=== PATIENT | male | born 1990 | race Hispanic/Latino ===

== ENCOUNTER 2021-04-11 17:21 | Emergency (ER) | payer SELFPAY ==
--- OUTSIDE RECORDS SUMMARY | 2021-04-11 17:31 | XMS REPORT | Continuity of Care Document ---
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 Request 2 mL hours prior to next bag Iohexol 2020-0 No 100 mL, Memoria 01-08 Route: l 23:12: IVP, Drug [place] 00 Form: SOLN, Dosing Weight 131.2, kg, ONCALL, STAT, Start date: 01/09/20 18:12:00 CDT, Duration: 1 doses or times, Dose = 2.2ml/kg, Max dose = 100ml -- "To be infused by Radiology Staff ONLY" Iohexol 2020-0 No 100 mL, Memoria 01-08 Route: l 23:12: IVP, Drug [place] 00 Form: SOLN, Dosing Weight 131.2, kg, ONCALL, STAT, Start date: 01/09/20 18:12:00 CDT, Duration: 1 doses or times, Dose = 2.2ml/kg, Max dose = 100ml -- "To be infused by Radiology Staff ONLY" Iohexol 2020-0 No 100 mL, Memoria 01-08 Route: l 21:19: IVP, Drug [place] 00 Form: SOLN, Dosing Weight 131.2, kg, ONCALL, STAT, Start date: 01/09/20 16:19:00 CDT, Duration: 1 doses or times, Dose = 2.2ml/kg, Max dose = 100ml -- "To be infused by Radiology Staff ONLY" Iohexol 0 No 100 mL, Memoria 01-08 Route: l 21:19: IVP, Drug Form: SOLN, Dosing Weight 131.2, kg, ONCALL, STAT, Start date: 01/09/20 16:19:00 CDT, Duration: 1 doses or times, Dose = 2.2ml/kg, Max dose = 100ml -- "To be infused by Radiology Staff ONLY" NS 1,000 mL No 1,000 mL, M emoria 01-08 Rate: 75 l 18:46: ml/hr, Infuse over: 13.3 hr, Route: IV, Dosing Weight 131.2 kg, Total Volume: 1,000, Start date: 01/09/20 13:46:00 CDT, Duration: 1 day, Stop date: 01/10/20 13:45:00 CDT, 2.61, m2, 0 NS 1,000 mL No 1,000 mL, M emoria 01-08 Rate: 75 l 18:46: ml/hr, Infuse over: 13.3 hr, Route: IV, Dosing Weight 131.2 kg, Total Volume: 1,000, Start date: 01/09/20 13:46:00 CDT, Duration: 1 day, Stop date: 01/10/20 13:45:00 CDT, 2.61, m2, 0 Beneprotein No Notes: Noe gabriel 7 gm pkt 5-20 (Same as: l 21:30: Rocco [place]) Beneprotein 2019-0 No Notes: Noe gabriel 7 gm pkt 5-20 (Same as: l 21:30: Rocco [place]) multivitami No Notes: Noe gabriel n with 5-20 (Same l minerals 17:00: as:Thera-M Her recio 00 , Theragran- M) WASTE: F/P - Black; E - Municipal Trash Bin Give with food. multivitami No Notes: Noe gabriel n with 5-20 (Same l minerals 17:00: as:Thera-M Her recio 00 , Theragran- M) WASTE: F/P - Black; E - Municipal Trash Bin Give with food. Seroquel No Notes: Memoria 5-19 (Same as: l 14:00: SEROquel) [place] Seroquel No Notes: Memoria 5-19 (Same as: l 14:00: SEROquel) [place] 00 Chlordiazep 2020-0 No 25 mg, 1 Me moria oxide 5-19 cap, l 13:00: Route: PO, [place] 00 Drug form: CAP, Q24H, Dosing Weight 131.2, kg, Start date: 01/05/20 8:00:00 CDT, Duration: 24 hr, Stop date: 01/05/20 8:00:00 CDT, 0 Chlordiazep 2020-0 No 25 mg, 1 Me moria oxide 5-19 cap, l 13:00: Route: PO, O[place]io Drug form: CAP, Q24H, Dosing Weight 131.2, kg, Start date: 01/05/20 8:00:00 CDT, Duration: 24 hr, Stop date: 01/05/20 8:00:00 CDT, 0 Melatonin 3 No Notes: Noe gabriel MG Extended 5-19 (Same as: l Release 02:00: Melatonin) Herm rogelio Tablet 00 Melatonin 3 No Notes: Noe gabriel MG Extended 5-19 (Same as: l Release 02:00: Melatonin) Herm rogelio Tablet 00 Bisacodyl No Notes: Memori a 5-18 (Same As: l 23:18: Dulcolax, [place] 00 Correctol) (Do Not Crush) "Do Not Crush" Bisacodyl No Notes: Memori a 5-18 (Same As: l 23:18: Dulcolax, [place] 00 Correctol) (Do Not Crush) "Do Not Crush" Clonidine No Notes: Memori a Hydrochlori 5-18 (Same As: l de 0.1 MG 22:00: Catapres) Her recio Oral Tablet 00 Clonidine No Notes: Memori a Hydrochlori 5-18 (Same As: l de 0.1 MG 22:00: Catapres) Her recio Oral Tablet Hydroxyzine No Notes: Noe gabriel 5-18 (Same as: l 20:10: Vistaril) Hydroxyzine No Notes: Noe gabriel 5-18 (Same as: l 20:10: Vistaril) Potassium No Notes: Memori a Chloride 5-18 (Same as: l 20:05: K-Dur 20) "Do Not Crush" Give with food and full glass of water For patients unable to swallow tablet, dissolve in one half glass of water. Allow about 2 minutes for the tablets to disintegra te. Stir before giving to prepare slurry and administer . Please exclude Patient s with feeding tube less than 14 [place] (Dobhoff, J-tube etc) and pediatric and patients. Haldol No Notes: Memoria 5-18 (Same as: l 20:05: Haldol) Otilio Potassium No Notes: Memori a Chloride 5-18 (Same as: l 20:05: K-Dur 20) "Do Not Crush" Give with food and full glass of water For patients unable to swallow tablet, dissolve in one half glass of water. Allow about 2 minutes for the tablets to disintegra te. Stir before giving to prepare slurry and administer . Please exclude Patient s with feeding tube less than 14 [place] (Dobhoff, J-tube etc) and pediatric and patients. Haldol No Notes: Memoria 5-18 (Same as: l 20:05: Haldol) Chlordiazep No 50 mg, 2 Me moria oxide 5-18 cap, l 13:00: Route: PO, Drug form: CAP, Q24H, Dosing Weight 131.2, kg, Start date: 01/04/20 8:00:00 CDT, Duration: 24 hr, Stop date: 01/04/20 8:00:00 CDT, 0 Chlordiazep No 50 mg, 2 Me moria oxide 5-18 cap, l 13:00: Route: PO, Drug form: CAP, Q24H, Dosing Weight 131.2, kg, Start date: 01/04/20 8:00:00 CDT, Duration: 24 hr, Stop date: 01/04/20 8:00:00 CDT, 0 sennosides, No Notes: Noe gabriel ALF 5-18 (Same as: l 02:00: Senokot) sennosides, No Notes: Noe gabriel ALF 5-18 (Same as: l 02:00: Senokot) [place] 00 docusate No Notes: Memoria 5-17 (Same as: l 22:00: Colace) [place] (Do Not Crush) docusate No Notes: Memoria 5-17 (Same as: l 22:00: Colace) [place] (Do Not Crush) Docusate No Notes: Memoria 5-17 (Same as: l 16:58: Colace) [place] 00 (Do Not Crush) Dulcolax No Notes: Memoria Laxative 5-17 (Same As: l 16:58: Dulcolax, [place] 00 Bisco-Lax) Docusate No Notes: Memoria 5-17 (Same as: l 16:58: Colace) [place] (Do Not Crush) Dulcolax No Notes: Memoria Laxative 5-17 (Same As: l 16:58: Dulcolax, Otilio Bisco-Lax) Chlordiazep No 50 mg, 2 Me moria oxide 5-17 cap, l 14:00: Route: PO, Drug form: CAP, Q12H, Dosing Weight 131.2, kg, Start date: 01/03/20 9:00:00 CDT, Duration: 24 hr, Stop date: 01/03/20 21:00:00 CDT, 0 Chlordiazep No 50 mg, 2 Me moria oxide 5-17 cap, l 14:00: Route: PO, Drug form: CAP, Q12H, Dosing Weight 131.2, kg, Start date: 01/03/20 9:00:00 CDT, Duration: 24 hr, Stop date: 01/03/20 21:00:00 CDT, 0 chlordiazeP 2020-0 No 50 mg, 2 Me moria OXIDE(Libri 5-17 cap, l um) 11:00: Route: PO, [place] 00 Drug form: CAP, ONCE, Dosing Weight 131.2, kg, Start date: 01/03/20 6:00:00 CDT, Stop date: 01/03/20 6:00:00 CDT, 0 chlordiazeP 2020-0 No 50 mg, 2 Me moria OXIDE(Libri 5-17 cap, l um) 11:00: Route: PO, [place] 00 Drug form: CAP, ONCE, Dosing Weight 131.2, kg, Start date: 01/03/20 6:00:00 CDT, Stop date: 01/03/20 6:00:00 CDT, 0 Chlordiazep 2020-0 No 50 mg, 2 Me moria oxide 5-16 cap, l 13:00: Route: PO, Drug form: CAP, Q8H, Dosing Weight 131.2, kg, Start date: 01/02/20 8:00:00 CDT, Duration: 24 hr, Stop date: 01/03/20 0:00:00 CDT, 0 Chlordiazep 2020-0 No 50 mg, 2 Me moria oxide 5-16 cap, l 13:00: Route: PO, Drug form: CAP, Q8H, Dosing Weight 131.2, kg, Start date: 01/02/20 8:00:00 CDT, Duration: 24 hr, Stop date: 01/03/20 0:00:00 CDT, 0 Potassium 2020-0 No Notes: Memori a Chloride 5-16 (Same as: l 12:25: K-Dur 20) "Do Not Crush" Give with food and full glass of water For patients unable to swallow tablet, dissolve in one half glass of water. Allow about 2 minutes for the tablets to disintegra te. Stir before giving to prepare slurry and administer . Please exclude Patient s with feeding tube less than 14 [place] (Dobhoff, J-tube etc) and pediatric and patients. Potassium 2020-0 No Notes: Memori a Chloride 5-16 (Same as: l 12:25: K-Dur 20) "Do Not Crush" Give with food and full glass of water For patients unable to swallow tablet, dissolve in one half glass of water. Allow about 2 minutes for the tablets to disintegra te. Stir before giving to prepare slurry and administer . Please exclude Patient s with feeding tube less than 14 [place] (Dobhoff, J-tube etc) and pediatric and patients. Seroquel 2020-0 No Notes: Memoria 5-16 (Same as: l 02:00: SEROquel) Seroquel 2019-0 No Notes: Memoria 5-16 (Same as: l 02:00: SEROquel) NS (Bolus) 2020-0 No 500 mL, Noe gabriel IV 5-15 500 ml/hr, l 23:45: Infuse [place] 00 Over: 1 hr, Route: IV, 500, Drug form: INJ, ONCE, Priority: STAT, Dosing Weight 131.2 kg, Start date: 01/01/20 18:45:00 CDT, Stop date: 01/01/20 18:45:00 CDT, 0 NS (Bolus) 2019-0 No 500 mL, Noe gabriel IV 5-15 500 ml/hr, l 23:45: Infuse [place] 00 Over: 1 hr, Route: IV, 500, Drug form: INJ, ONCE, Priority: STAT, Dosing Weight 131.2 kg, Start date: 01/01/20 18:45:00 CDT, Stop date: 01/01/20 18:45:00 CDT, 0 Metoprolol 2019-0 No 50 mg = 1 Me moria Succinate 5-15 tab, PO, l ER 50 mg 23:19: Daily, # Lila nn oral 00 30 tab, 0 tablet, Refill(s) extended release lisinopril 2019-0 No 20 mg = 1 Me moria 20 mg oral 5-15 tab, PO, l tablet 23:19: Daily, # [place] 00 30 tab, 0 Refill(s) metoprolol 2019-0 No Notes: Memor ia extended 5-15 (Same as: l release 23:19: Toprol XL) Herm May split tab, but do not crush. Metoprolol 2020-0 No 50 mg = 1 Me moria Succinate 5-15 tab, PO, l ER 50 mg 23:19: Daily, # Lila nn oral 00 30 tab, 0 tablet, Refill(s) extended release lisinopril 2019-0 No 20 mg = 1 Me moria 20 mg oral 5-15 tab, PO, l tablet 23:19: Daily, # 30 tab, 0 Refill(s) metoprolol 2019-0 No Notes: Memor ia extended 5-15 (Same as: l release 23:19: Toprol XL) Herm May split tab, but do not crush. Clonidine 2019-0 No Notes: Memori a Hydrochlori 5-15 (Same As: l de 0.1 MG 22:00: Catapres) Her recio Oral Tablet 00 Clonidine 2019-0 No Notes: Memori a Hydrochlori 5-15 (Same As: l de 0.1 MG 22:00: Catapres) Her recio Oral Tablet 00 Chlordiazep 2019-0 No 50 mg, 2 Me moria oxide 5-15 cap, l 17:00: Route: PO, Drug form: CAP, Q6H, Dosing Weight 131.2, kg, Start date: 01/01/20 12:00:00 CDT, Duration: 24 hr, Stop date: 01/02/20 6:00:00 CDT, 0 Chlordiazep 2019-0 No 50 mg, 2 Me moria oxide 5-15 cap, l 17:00: Route: PO, Drug form: CAP, Q6H, Dosing Weight 131.2, kg, Start date: 01/01/20 12:00:00 CDT, Duration: 24 hr, Stop date: 01/02/20 6:00:00 CDT, 0 Thiamine 2019-0 No 100 mg, Memori a 5-15 Route: PO, l 14:00: Daily, Dosing Weight 131.2, kg, Start date: 01/01/20 9:00:00 CDT, Duration: 5 day, Stop date: 01/05/20 9:00:00 CDT Docusate 2019-0 No Notes: Memoria Sodium 50 5-15 (Same as l MG / 14:00: Senokot-S) Otilio sennosides, 00 Equiv. to ALF 8.6 MG [place]ivid[place] Oral Tablet e. Thiamine 2019-0 No 100 mg, Memori a 5-15 Route: PO, l 14:00: Daily, [place] 00 Dosing Weight 131.2, kg, Start date: 01/01/20 9:00:00 CDT, Duration: 5 day, Stop date: 01/05/20 9:00:00 CDT Docusate No Notes: Memoria Sodium 50 5-15 (Same as l MG / 14:00: Senokot-S) sennosides, 00 Equiv. to ALF 8.6 MG Natividad-[place] Oral Tablet e. Lorazepam No Notes: Memori a 5-15 (Same as: l 12:32: Ativan) Lorazepam No Notes: Memori a 5-15 (Same as: l 12:32: Ativan) Acetaminoph No Notes: Max Memoria en 5-15 acetaminop l 02:00: hen 4000 [place] 00 mg/day (4 gm/day). (Same as: Tylenol Extra Strength) Levetiracet No Notes: Noe gabriel am 1000 MG 5-15 (Same l Oral Tablet 02:00: as:Keppra) [place] [Keppra] Acetaminoph No Notes: Max Memoria en 5-15 acetaminop l 02:00: hen 4000 [place] 00 mg/day (4 gm/day). (Same as: Tylenol Extra Strength) Levetiracet No Notes: Neo gabriel am 1000 MG 5-15 (Same l Oral Tablet 02:00: as:Keppra) [place] [Keppra] tramadol No Notes: Not Mem oria hydrochlori 5-14 to exceed l de 50 MG 23:00: 400mg/day. Her recio Oral Tablet 00 (Same As: Ultram) Chlordiazep No 50 mg, 2 Me moria oxide 5-14 cap, l Hydrochlori 23:00: Route: PO, Otilio de 25 MG 00 Drug form: Oral CAP, Q6H, Capsule Dosing Weight 131.2, kg, Alcohol Withdrawal , Start date: 12/31/19 18:00:00 CDT, Duration: 30 day, Stop date: 01/30/20 12:00:00 CDT, 0 tramadol No Notes: Not Mem oria hydrochlori 5-14 to exceed l de 50 MG 23:00: 400mg/day. Her recio Oral Tablet 00 (Same As: Ultram) Chlordiazep 2019-0 No 50 mg, 2 Me moria oxide 5-14 cap, l Hydrochlori 23:00: Route: PO, Otilio de 25 MG 00 Drug form: Oral CAP, Q6H, Capsule Dosing Weight 131.2, kg, Alcohol Withdrawal , Start date: 12/31/19 18:00:00 CDT, Duration: 30 day, Stop date: 01/30/20 12:00:00 CDT, 0 Valium 2019-0 No Notes: Memoria 5-14 (Same as: l 21:04: Valium) Valium 2019-0 No Notes: Memoria 5-14 (Same as: l 21:04: Valium) Lovenox 2019-0 No Notes: Memoria 5-14 (Same as: l 21:00: Lovenox) Lovenox 2019-0 No Notes: Memoria 5-14 (Same as: l 21:00: Lovenox) Oxycodone 2019-0 No Notes: Memori a Hydrochlori 5-14 (Same as: l de 1 MG/ML 20:59: Roxicodone H ermann Oral 00 ) Solution Oxycodone 2019-0 No Notes: Memori a Hydrochlori 5-14 (Same as: l de 1 MG/ML 20:59: Roxicodone H ermann Oral 00 ) Solution Tylenol 2019-0 No Notes: Max Noe gabriel 5-14 acetaminop l 17:00: hen = [place] 00 4000mg/day (4 gm/day). (Same as: Tylenol) Oxycodone 2019-0 No Notes: Memori a Hydrochlori 5-14 (Same as: l de 1 MG/ML 17:00: 'Roxicodon H ermann Oral 00 e) Solution Tylenol 2019-0 No Notes: Max Noe gabriel 5-14 acetaminop l 17:00: hen = [place] 00 4000mg/day (4 gm/day). (Same as: Tylenol) Oxycodone 2019-0 No Notes: Memori a Hydrochlori 5-14 (Same as: l de 1 MG/ML 17:00: 'Roxicodon H ermann Oral 00 e) Solution Acetaminoph 2020-0 No Notes: Do M emoria en 5-14 not exceed l 15:00: 4 gm/day. (Same as: Tylenol) Acetaminoph 2020-0 No Notes: Do M emoria en 5-14 not exceed l 15:00: 4 gm/day. (Same as: Tylenol) Chlordiazep 2020-0 No 50 mg, 2 Me moria oxide 5-14 cap, l Hydrochlori 14:48: Route: PO, [place] de 25 MG 00 Drug form: Oral CAP, Capsule Q6Hnow, Dosing Weight 131.2, kg, Alcohol Withdrawal , Priority: NOW, Start date: 12/31/19 9:48:00 CDT, Stop date: 01/30/20 4:00:00 CDT, 0 Chlordiazep 2020-0 No 50 mg, 2 Me moria oxide 5-14 cap, l Hydrochlori 14:48: Route: PO, Otilio de 25 MG 00 Drug form: Oral CAP, Capsule Q6Hnow, Dosing Weight 131.2, kg, Alcohol Withdrawal , Priority: NOW, Start date: 12/31/19 9:48:00 CDT, Stop date: 01/30/20 4:00:00 CDT, 0 Docusate 2020-0 No Notes: Memoria Sodium 50 5-14 (Same as l MG / 14:44: Senokot-S) Otilio sennosides, 00 Equiv. to ALF 8.6 MG Natividad-Colac Oral Tablet e. Docusate 2020-0 No Notes: Memoria Sodium 50 5-14 (Same as l MG / 14:44: Senokot-S) Otilio sennosides, 00 Equiv. to ALF 8.6 MG Natividad-Col[place] Oral Tablet e. gabapentin 2020-0 No Notes: Memor ia 300 MG Oral 5-14 (Same as: l Capsule 14:30: Neurontin) Herm gabapentin 2020-0 No Notes: Memor ia 300 MG Oral 5-14 (Same as: l Capsule 14:30: Neurontin) Herm Dexmedetomi 2020-0 No Notes: Noe gabriel dine 5-14 (Same as: l 12:46: Precedex) Dexmedetomi 2020-0 No Notes: Noe gabriel dine 5-14 (Same as: l 12:46: Precedex) Otilio Morphine 2019-0 No Notes: Memoria 5-14 (Same l 12:32: as:MORPhin [place] 00 e Sulfate) Morphine 2020-0 No Notes: Memoria 5-14 (Same l 12:32: as:MORPhin [place] 00 e Sulfate) Dexmedetomi 2020-0 No Notes: Use Memoria dine 5-14 the l 03:49: following [place] 00 cdm for [id number]. Dexmedetomi 2020-0 No Notes: Use Memoria dine 5-14 the l 03:49: following [place] 00 cdm for [id number]. Keppra + 2020-0 No Notes: Memoria Sodium 5-14 Same as l Chloride 02:00: Keppra [place] 0.9% IV 100 00 Mix with mL 100 mL NS, LR or D5W MEDICATION WASTE Product Size: 500 mg Product Wasted: ___ mg Keppra + 2019-0 No Notes: Memoria Sodium 5-14 Same as l Chloride 02:00: Keppra O[place] 0.9% IV 100 00 Mix with mL 100 mL NS, LR or D5W MEDICATION WASTE Product Size: 500 mg Product Wasted: ___ mg Midazolam 2020-0 No Notes: Memori a 5-14 (Same as: l 01:40: Versed) O[place] 00 Midazolam 2019-0 No Notes: Memori a 5-14 (Same as: l 01:40: Versed) acetaminoph 2019-0 No Notes: Max Memoria en 5-13 acetaminop l 23:00: hen 4000 [place] 00 mg/day (4 gm/day). (Same as: Tylenol Extra Strength) acetaminoph 2019-0 No Notes: Max Memoria en 5-13 acetaminop l 23:00: hen 4000 [place] 00 mg/day (4 gm/day). (Same as: Tylenol Extra Strength) Beneprotein 2019-0 No Notes: Noe gabriel 7 gm pkt 5-13 (Same as: l 17:00: Beneprotei O[place] 00 n) Beneprotein 2020-0 No Notes: Noe gabriel 7 gm pkt 5-13 (Same as: l 17:00: Beneprotei [place] 00 n) heparin No Notes: Memoria 5-13 porcine l 16:00: heparin heparin No Notes: Memoria 5-13 porcine l 16:00: heparin [place] 00 lansoprazol No Notes: Noe gabriel e 5-13 Take 1 l 14:00: hour [place] 00 before or 2 hours after meal; Expires in 14 days. Shake well before use. (Same as:Prevaci d) Compound ed Product - formulatio n not commercial ly available* * multivitami No Notes: Noe gabriel n 5-13 (Same l 14:00: as:Thera) [place] 00 WASTE: F/P - Black; E - Municipal Trash Bin Take with food. Folic Acid No Notes: Memor ia 5-13 (Same as: l 14:00: Folvite) Thiamine No Notes: Memoria 5-13 (Same As: l 14:00: Vitamin Otil[place] 00 B1) Docusate No Notes: Memoria 5-13 (Same as: l 14:00: Colace) [place] 00 sennosides, No Notes: Noe gabriel ALF 5-13 (Same as: l 14:00: Senokot) lansoprazol No Notes: Noe gabriel e 5-13 Take 1 l 14:00: hour O[place] 00 before or 2 hours after meal; Expires in 14 days. Shake well before use. (Same as:Prevaci d) Compound ed Product - formulatio n not commercial ly available* * multivitami No Notes: Noe gabriel n 5-13 (Same l 14:00: as:Thera) [place] 00 WASTE: F/P - Black; E - Municipal Trash Bin Take with food. Folic Acid No Notes: Memor ia 5-13 (Same as: l 14:00: Folvite) [place] Thiamine No Notes: Memoria 5-13 (Same As: l 14:00: Vitamin Otilio 00 B1) Docusate No Notes: Memoria 5-13 (Same as: l 14:00: Colace) O[place] 00 sennosides, 2020-0 No Notes: Noe gabriel ALF 5-13 (Same as: l 14:00: Senokot) [place] 00 potassium 2019-0 No Notes: Memori a phosphate-s 5-13 (Same as: l odium 13:58: Phos-NaK) [place] phosphate 00 Each 1.5 250 mg-280 gm pkt has mg-160 mg 250mg oral powder phosphorou for s. Mix reconstitut w/2.5oz ion water and stir. potassium 2020-0 No Notes: Memori a phosphate-s 5-13 (Same as: l odium 13:58: Phos-NaK) Otilio phosphate 00 Each 1.5 250 mg-280 gm pkt has mg-160 mg 250mg oral powder phosphorou for s. Mix reconstitut w/2.5oz ion water and stir. chlorhexidi 2019- No Notes: Noe gabriel ne 5-13 (Same As: l gluconate 02:00: Peridex) Herm rogelio 1.2 MG/ML 00 Mouthwash chlorhexidi No Notes: Noe gabriel ne 5-13 (Same As: l gluconate 02:00: Peridex) Herm rogelio 1.2 MG/ML 00 Mouthwash Heparin 80 No Pharmacy Mem oria unit/kg 5-13 To Manage, l Bolus 01:38: Route: Otilio (Heparin 00 IVP, PRN, Dosing Drug form: Weight) INJ, PRN, Heparin Protocol, Start date: 12/29/19 20:38:00 CDT Stop date: 01/28/20 20:37:00 CDT, 30 day Heparin 40 No Route: Memor ia unit/kg 5-13 IVP, PRN, l Bolus 01:38: 3,900 Otilio (Heparin 00 unit, 3.9 Dosing mL, Drug Weight) form: INJ, PRN, Heparin Protocol, Start date: 12/29/19 20:38:00 CDT Stop date: 01/28/20 20:37:00 CDT, 30 day, 0 heparin 2020-0 No Notes: Memoria additive 5-13 Total l 25,000 unit 01:38: Concentrat [place] [18 00 ion = 50 unit/kg/hr] unit/ ml + Premix Total Diluent volume = Sodium 500 ml Chloride Send Med 0.45% 500 Request 2 mL hours prior to next bag Heparin 80 2020-0 No Pharmacy Mem oria unit/kg 5-13 To Manage, l Bolus 01:38: Route: [place] (Heparin 00 IVP, PRN, Dosing Drug form: Weight) INJ, PRN, Heparin Protocol, Start date: 12/29/19 20:38:00 CDT Stop date: 01/28/20 20:37:00 CDT, 30 day Heparin 40 2019-0 No Route: Memor ia unit/kg 5-13 IVP, PRN, l Bolus 01:38: 3,900 Otilio (Heparin 00 unit, 3.9 Dosing mL, Drug Weight) form: INJ, PRN, Heparin Protocol, Start date: 12/29/19 20:38:00 CDT Stop date: 01/28/20 20:37:00 CDT, 30 day, 0 heparin 2020-0 No Notes: Memoria additive 5-13 Total l 25,000 unit 01:38: Concentrat Otilio [18 00 ion = 50 unit/kg/hr] unit/ ml + Premix Total Diluent volume = Sodium 500 ml Chloride Send Med 0.45% 500 Request 2 mL hours prior to next bag Cefazolin 2020-0 No Notes: Memori a 5-13 (Same As: l 00:00: Ancef, [place] Kefzol) MEDICATION WASTE Product Size: 1000 mg Product Wasted: ___ mg Cefazolin 2020-0 No Notes: Memori a 5-13 (Same As: l 00:00: Ancef, Otilio Kefzol) MEDICATION WASTE Product Size: 1000 mg Product Wasted: ___ mg Lisinopril 2020-0 No Notes: Memor ia 5-12 (Same as: l 23:01: Prinivil, [place] 00 Zestril) Lisinopril 2020-0 No Notes: Memor ia 5-12 (Same as: l 23:01: Prinivil, Otilio 00 Zestril) ocular 2020-0 No Notes: Memoria lubricant 5-12 (Same as: l 23:00: Lacri-Lube [place] 00 , Puralube, Duratears Naturale, Artificial Tears, and Tears Again ) heparin 2019-0 No Notes: Memoria 5-12 porcine l 23:00: heparin ocular 2019-0 No Notes: Memoria lubricant 5-12 (Same as: l 23:00: Lacri-Lube , Puralube, Duratears Naturale, Artificial Tears, and Tears Again ) heparin No Notes: Memoria 5-12 porcine l 23:00: heparin Lorazepam No Notes: Memori a 5-12 (Same as: l 22:59: Ativan) Potassium No Notes: Memori a Chloride - (Same as: l 22:59: KCL) Infuse no faster than 10 mEq/hr if given peripheral ly. sodium No Notes: Memoria phosphate - Infuse l 22:59: over 4 hour. Do not infuse phosphorou s concurrent ly in the same line as TPN or IVF that contains calcium. For double lumen central lines, phosphorou s may be infused in a separate lumen from TPN. potassium No Notes: Memori a phosphate - (Same as: l 22:59: K Phosphate. ) Do not infuse phosphorou s concurrent ly in the same line as TPN or IVF that contains calcium. For double lumen central lines, phosphorou s may be infused in a separate lumen from TPN. 1 mMol phoshate has 1.47 mEq potassium Infuse over 4 hours potassium No Notes: Mem[facility] a phosphate-s - (Same as: l odium 22:59: Phos-NaK) Each 1.5 250 mg-280 gm pkt has mg-160 mg 250mg oral powder phosphorou for s. Mix reconstitut w/2.5oz ion water and stir. Magnesium No Notes: [facility] a Sulfate 12-28 WASTE: F/P l 22:59: - Sink; E - [facility] Trash Bin Magnesium No Notes: [facility] a Oxide - (Same as: l 22:59: Mag-Ox 400) Magnesium oxide [id number] g elemental magnesium Dose=____m g magnesium oxide (___mg elemental magnesium) Calcium No Notes: [facility] Gluconate 12-28 WASTE: F/P l 22:59: - Sink; E - [facility] Trash [facility] Calcium 2019- No Notes: [facility] Carbonate 5-12 500mg l 500 MG 22:59: elemental Carlos Alberto n Chewable 00 calcium = Tablet 1250mg calcium carbonate. Contains 500mg elemental calcium. (Same As: OsCal 500) Lorazepam 2019- No Notes: Memori a 5-12 (Same as: l 22:59: Ativan) Potassium No Notes: [facility] a Chloride -12 (Same as: l 22:59: KCL) Infuse no faster than 10 mEq/hr if given peripheral ly. sodium No Notes: [facility] phosphate 5-12 Infuse l 22:59: over 4 hour. Do not infuse phosphorou s concurrent ly in the same line as TPN or IVF that contains calcium. For double lumen central lines, phosphorou s may be infused in a separate lumen from TPN. potassium No Notes: Memori a phosphate 5- (Same as: l 22:59: K Otilio 00 Phosphate. ) Do not infuse phosphorou s concurrent ly in the same line as TPN or IVF that contains calcium. For double lumen central lines, phosphorou s may be infused in a separate lumen from TPN. 1 mMol phoshate has 1.47 mEq potassium Infuse over 4 hours potassium 2019-0 No Notes: Memori a phosphate-s -12 (Same as: l odium 22:59: Phos-NaK) [place] phosphate 00 Each 1.5 250 mg-280 gm pkt has mg-160 mg 250mg oral powder phosphorou for s. Mix reconstitut w/2.5oz ion water and stir. Magnesium No Notes: [facility] a Sulfate - WASTE: F/P l 22:59: - Sink; E - [facility] Trash [facility] Magnesium 2019- No Notes: [facility] a Oxide 5-12 (Same as: l 22:59: Mag-Ox Otilio 00 400) Magnesium oxide [id number] g elemental magnesium Dose=____m g magnesium oxide (___mg elemental magnesium) Calcium 2019- No Notes: Memoria Gluconate 5-12 WASTE: F/P l 22:59: - Sink; E [place] - Municipal Trash Bin Calcium No Notes: Memoria Carbonate 5-12 500mg l 500 MG 22:59: elemental Carlos Alberto n Chewable 00 calcium = Tablet 1250mg calcium carbonate. Contains 500mg elemental calcium. (Same As: OsCal 500) Acetaminoph No Notes: Noe gabriel en 5-12 Infuse l 22:00: over 15 [place] 00 minutes Do not exceed 4gm/day of acetaminop hen MEDICATION WASTE Product Size: 1000 mg Product Wasted: ___ mg Docusate No Notes: Memoria 5-12 (Same as: l 22:00: Colace) [place] (Do Not Crush) Acetaminoph No Notes: Noe gabriel en 5-12 Infuse l 22:00: over 15 [place] 00 minutes Do not exceed 4gm/day of acetaminop hen MEDICATION WASTE Product Size: 1000 mg Product Wasted: ___ mg Docusate No Notes: Memoria 5-12 (Same as: l 22:00: Colace) [place] (Do Not Crush) Fentanyl No 1,000 Memoria 5-12 microgram, l 21:58: 20 mL, [place] 00 Rate: Titrate, Start Dose: 50 microgram/ hr, Titration: 25 microgram/ hour every 15 minutes, Goal(s): RASS -2, Max Dose: 300 microgram/ hr, Route: IV, Dosing Weight 130 kg, Total Volume: 20, Start date: 12/29/19 16:58:00 CDT, Dura... Midazolam No Notes: Memori a 5-12 (Same as: l 21:58: Versed) [place] Fentanyl No 1,000 Memoria 5-12 microgram, l 21:58: 20 mL, [place] 00 Rate: Titrate, Start Dose: 50 microgram/ hr, Titration: 25 microgram/ hour every 15 minutes, Goal(s): RASS -2, Max Dose: 300 microgram/ hr, Route: IV, Dosing Weight 130 kg, Total Volume: 20, Start date: 12/29/19 16:58:00 CDT, Dura... Midazolam No Notes: Memori a 5-12 (Same as: l 21:58: Versed) [place] chlorhexidi 2019-0 No Notes: Noe gabriel ne 5-12 (Same As: l gluconate 21:46: Peridex) Herm rogelio 1.2 MG/ML 00 Mouthwash chlorhexidi 2019-0 No Notes: Noe gabriel ne 5-12 (Same As: l gluconate 21:46: Peridex) Herm rogelio 1.2 MG/ML 00 Mouthwash midazolam 2019-0 No Route: IV, Me moria (ANES) 5-12 Drug form: l 21:17: SOLN, [place] 00 ONCE, Stop date: 12/29/19 16:17:00 CDT morphine 2019-0 No Route: IV, Mem oria Sulfate 5-12 Drug form: l (ANES) 21:17: INJ, ONCE, Lila nn Stop date: 12/29/19 16:17:00 CDT midazolam 2019-0 No Route: IV, Me moria (ANES) 5-12 Drug form: l 21:17: SOLN, [place] 00 ONCE, Stop date: 12/29/19 16:17:00 CDT morphine 2019-0 No Route: IV, Mem oria Sulfate 5-12 Drug form: l (ANES) 21:17: INJ, ONCE, Lila nn Stop date: 12/29/19 16:17:00 CDT Lactated 2019-0 No 1,000 mL, Noe gabriel Ringers IV 5-12 Rate: 125 l 1,000 mL 21:13: ml/hr, Infuse over: 8 hr, Route: IV, Dosing Weight 130 kg, Total Volume: 1,000, Start date: 12/29/19 16:13:00 CDT, Duration: 30 day, Stop date: 01/28/20 16:12:00 CDT, 2.6, m2, 0 Oxycodone 2019-0 No Notes: Memori a Hydrochlori 5-12 (Same as: l de 5 MG 21:13: Roxicodone Herm rogelio Oral Tablet ) Morphine 2019-0 No Notes: Memoria 5-12 (Same l 21:13: as:MORPhin [place] 00 e Sulfate) Naloxone 2019-0 No Notes: Memoria 5-12 Same as l 21:13: Narcan [place] 00 Ondansetron 2020-0 No Notes: Noe gabriel 5-12 (Same as: l 21:13: Zofran) [place] MEDICATION WASTE Product Size: 4 mg Product Wasted: ___ mg Diphenhydra 2020-0 No Notes: Noe gabriel mine 5-12 (Same as: l 21:13: Benadryl) [place] 00 Lactated 2019-0 No 1,000 mL, Noe gabriel Ringers IV 5-12 Rate: 125 l 1,000 mL 21:13: ml/hr, [place] 00 Infuse over: 8 hr, Route: IV, Dosing Weight 130 kg, Total Volume: 1,000, Start date: 12/29/19 16:13:00 CDT, Duration: 30 day, Stop date: 01/28/20 16:12:00 CDT, 2.6, m2, 0 Oxycodone 2019-0 No Notes: Memori a Hydrochlori -12 (Same as: l de 5 MG 21:13: Roxicodone Herm rogelio Oral Tablet ) Morphine 2019-0 No Notes: Memoria 5-12 (Same l 21:13: as:MORPhin [place] e Sulfate) Naloxone 2019-0 No Notes: Memoria 5-12 Same as l 21:13: Narcan [place] 00 Ondansetron 2019-0 No Notes: Noe gabriel 5-12 (Same as: l 21:13: Zofran) [place] MEDICATION WASTE Product Size: 4 mg Product Wasted: ___ mg Diphenhydra 2020-0 No Notes: Noe gabriel mine 5-12 (Same as: l 21:13: Benadryl) [place] 00 Lovenox 2020-0 No Notes: Memoria 5-12 Nurse to l 21:00: ensure [place] documentat ion of patient education per anticoagul ation policy. (Same as: Lovenox) Lovenox 2019-0 No Notes: Memoria 5-12 Nurse to l 21:00: ensure [place] 00 documentat ion of patient education per anticoagul ation policy. (Same as: Lovenox) propofol 2019-0 No Route: IV, Mem oria (ANES) 5-12 Drug form: l 15:34: INJ, ONCE, [place] 00 Stop date: 12/29/19 10:34:00 CDT rocuronium 2020-0 No Route: IV, M emoria (ANES) 5-12 Drug form: l 15:34: INJ, ONCE, Stop date: 12/29/19 10:34:00 CDT fentaNYL 2020-0 No Route: IV, Mem oria (ANES) 5-12 Drug form: l 15:34: INJ, ONCE, Stop date: 12/29/19 10:34:00 CDT ceFAZolin 2020-0 No Route: IV, Me moria (ANES) 5-12 Drug form: l 15:34: INJ, ONCE, Stop date: 12/29/19 10:34:00 CDT propofol 2020-0 No Route: IV, Mem oria (ANES) 5-12 Drug form: l 15:34: INJ, ONCE, Stop date: 12/29/19 10:34:00 CDT rocuronium 2020-0 No Route: IV, M emoria (ANES) 5-12 Drug form: l 15:34: INJ, ONCE, Stop date: 12/29/19 10:34:00 CDT fentaNYL 2020-0 No Route: IV, Mem oria (ANES) 5-12 Drug form: l 15:34: INJ, ONCE, Stop date: 12/29/19 10:34:00 CDT ceFAZolin 2020-0 No Route: IV, Me moria (ANES) 5-12 Drug form: l 15:34: INJ, ONCE, Stop date: 12/29/19 10:34:00 CDT Lactated 2020-0 No Route: IV, Mem oria Ringers 5-12 Total l Injection 13:45: Volume: Lila nn IV (ANES) 00 1,000, 1000 mL Start date: 12/29/19 8:45:00 CDT, Stop date: 12/29/19 9:45:00 CDT Lactated 2020-0 No Route: IV, Mem oria Ringers 5-12 Total l Injection 13:45: Volume: Lila nn IV (ANES) 00 1,000, 1000 mL Start date: 12/29/19 8:45:00 CDT, Stop date: 12/29/19 9:45:00 CDT Keppra 2020-0 No Notes: Memoria 5-12 (Same l 02:00: as:Keppra) Keppra 2020-0 No Notes: Memoria 5-12 (Same l 02:00: as:Keppra) Isolyte S 2020-0 No Notes: Memori a PH 7.4 5-12 (Same as: l 1,000 mL 00:57: Isolyte S Herm rogelio 00 PH7.4, Normosol-R PH 7.4, Plasma-Lyt e A ) Isolyte S 2020-0 No Notes: Memori a PH 7.4 5-12 (Same as: l 1,000 mL 00:57: Isolyte S Herm rogelio 00 PH7.4, Normosol-R PH 7.4, Plasma-Lyt e A ) Propranolol 2020-0 No 10 mg, 1 Me moria 5-11 tab, l 23:00: Route: PO, Drug form: TAB, Q6H, Dosing Weight 130, kg, Start date: 12/28/19 18:00:00 CDT, Duration: 30 day, Stop date: 01/27/20 12:00:00 CDT, 0 Propranolol 2020-0 No 10 mg, 1 Me moria 5-11 tab, l 23:00: Route: PO, Drug form: TAB, Q6H, Dosing Weight 130, kg, Start date: 12/28/19 18:00:00 CDT, Duration: 30 day, Stop date: 01/27/20 12:00:00 CDT, 0 Neurontin 2020-0 No Notes: Memori a 5-11 (Same as: l 21:00: Neurontin) Neurontin 2020-0 No Notes: Memori a 5-11 (Same as: l 21:00: Neurontin) Valium 2020-0 No 5 mg, Memoria 5-11 Route: IM, l 17:00: Q6H, Dosing Weight 130, kg, Start date: 12/28/19 12:00:00 CDT, Duration: 30 day, Stop date: 01/27/20 6:00:00 CDT Valium 2020-0 No 5 mg, Memoria 5-11 Route: IM, l 17:00: Q6H, [place] 00 Dosing Weight 130, kg, Start date: 12/28/19 12:00:00 CDT, Duration: 30 day, Stop date: 01/27/20 6:00:00 CDT Docusate No Notes: Memoria 5-11 (Same as: l 14:00: Colace) [place] (Do Not Crush) Docusate No Notes: Memoria Sodium 50 5-11 (Same as: l MG Oral 14:00: Colace) [place] Capsule 00 (Do Not Crush) Docusate No Notes: Memoria 5-11 (Same as: l 14:00: Colace) [place] 00 (Do Not Crush) Docusate No Notes: Memoria Sodium 50 5-11 (Same as: l MG Oral 14:00: Colace) [place] Capsule 00 (Do Not Crush) Thiamine No Notes: Memoria 5-11 (Same As: l 12:00: Vitamin [place] B1) Folic Acid No Notes: Memor ia 5-11 (Same as: l 12:00: Folvite) [place] 00 Thiamine No Notes: Memoria 5-11 (Same As: l 12:00: Vitamin [place] B1) Folic Acid No Notes: Memor ia 5-11 (Same as: l 12:00: Folvite) [place] 00 Lidocaine No Notes: Memori a Hydrochlori 5-11 Preservati l de 10 MG/ML 00:50: ve free. [place] Injectable 00 (Same as: Solution Xylocaine MPF) Lidocaine No Notes: Memori a Hydrochlori 5-11 Preservati l de 10 MG/ML 00:50: ve free. [place] Injectable 00 (Same as: Solution Xylocaine MPF) Lovenox No Notes: Memoria 5-10 (Same as: l 21:00: Lovenox) [place] 00 Lovenox No Notes: Memoria 5-10 (Same as: l 21:00: Lovenox) [place] 00 Isolyte S No Notes: Memori a PH 7.4 5-10 (Same as: l 1,000 mL 17:02: Isolyte S Herm rogelio 00 PH7.4, Normosol-R PH 7.4, Plasma-Lyt e A ) Isolyte S No Notes: Memori a PH 7.4 5-10 (Same as: l 1,000 mL 17:02: Isolyte S Herm rogelio 00 PH7.4, Normosol-R PH 7.4, Plasma-Lyt e A ) Clonidine No Notes: Memori a Hydrochlori 5-10 (Same As: l de 0.1 MG 17:00: Catapres) Her recio Oral Tablet 00 Clonidine No Notes: Memori a Hydrochlori 5-10 (Same As: l de 0.1 MG 17:00: Catapres) Her recio Oral Tablet 00 Miralax No Notes: Memoria 5-10 Dissolve l 14:00: in 8 oz of [place] 00 water or juice. (Same as: Miralax) Docusate No Notes: Memoria 5-10 (Same as: l 14:00: Colace) [place] (Do Not Crush) Miralax No Notes: Memoria 5-10 Dissolve l 14:00: in 8 oz of [place] 00 water or juice. (Same as: Miralax) Docusate No Notes: Memoria 5-10 (Same as: l 14:00: Colace) [place] 00 (Do Not Crush) Isolyte S No Notes: Memori a PH 7.4 5-10 (Same as: l 1,000 mL 11:15: Isolyte S Herm rogelio 00 PH7.4, Normosol-R PH 7.4, Plasma-Lyt e A ) Isolyte S No Notes: Memori a PH 7.4 5-10 (Same as: l 1,000 mL 11:15: Isolyte S Herm rogelio 00 PH7.4, Normosol-R PH 7.4, Plasma-Lyt e A ) Famotidine No Notes: Memor ia 5-10 (Same as: l 02:00: Pepcid) [place] 00 chlorhexidi No Notes: Noe gabriel ne 5-10 (Same As: l gluconate 02:00: Peridex) Herm rogelio 1.2 MG/ML 00 Mouthwash Naproxen 2019-0 No Notes: Memoria 5-10 (Same as: l 02:00: Naprosyn) Take with food. Famotidine 2019-0 No Notes: Memor ia 5-10 (Same as: l 02:00: Pepcid) chlorhexidi 2019-0 No Notes: Noe gabriel ne 5-10 (Same As: l gluconate 02:00: Peridex) Herm rogelio 1.2 MG/ML 00 Mouthwash Naproxen 2019-0 No Notes: Memoria 5-10 (Same as: l 02:00: Naprosyn) Take with food. Labetalol 2020-0 No 10 mg, 2 Noe gabriel 5-10 mL, Route: l 01:37: IVP, Drug [place] 00 form: INJ, Q1H, Dosing Weight 130, kg, PRN Hypertensi on, Start date: 12/26/19 20:37:00 CDT, Duration: 3 doses or times, Stop date: Limited # of times, 0 Labetalol 2019-0 No 10 mg, 2 Noe gabriel 5-10 mL, Route: l 01:37: IVP, Drug form: INJ, Q1H, Dosing Weight 130, kg, PRN Hypertensi on, Start date: 12/26/19 20:37:00 CDT, Duration: 3 doses or times, Stop date: Limited # of times, 0 Versed 2019-0 No Notes: Memoria 5-10 (Same as: l 01:36: Versed) 00 MEDICATION WASTE Product Size: 2 mg Product Wasted: ___ mg Versed 2019-0 No Notes: Memoria 5-10 (Same as: l 01:36: Versed) [place] 00 MEDICATION WASTE Product Size: 2 mg Product Wasted: ___ mg Fentanyl 2019-0 No Notes: Memoria 5-10 (Same as: l 00:45: Sublimaze) Preservat collin free. Fentanyl 2019-0 No Notes: Memoria 5-10 (Same as: l 00:45: Sublimaze) Preservat collin free. Dexmedetomi 2019-0 No Notes: Noe gabriel dine 5-09 (Same as: l 23:45: Precedex) Dexmedetomi No Notes: Noe gabriel dine 5- (Same as: l 23:45: Precedex) Propranolol No Notes: Neo gabriel 5-09 Give with l 23:00: food. (Same as: Inderal) Keppra No Notes: Memoria 5- Same as l 23:00: Keppra Mix with 100 mL NS, LR or D5W MEDICATION WASTE Product Size: 500 mg Product Wasted: ___ mg Propranolol No Notes: Noe gabriel 5-09 Give with l 23:00: food. (Same as: Inderal) Keppra No Notes: Memoria 5- Same as l 23:00: Keppra Mix with 100 mL NS, LR or D5W MEDICATION WASTE Product Size: 500 mg Product Wasted: ___ mg sennosides, No Notes: Noe gabriel ALF 8.6 MG - (Same as: l Oral Tablet 22:00: Senokot) sennosides, No Notes: Neo gabriel ALF 8.6 MG 5- (Same as: l Oral Tablet 22:00: Senokot) Haldol No Notes: Memoria 5- (Same as: l 19:54: Haldol) Haldol No Notes: Memoria 5- (Same as: l 19:54: Haldol) Haldol 0 No 5 mg, Memoria 5-09 Route: IV, l 19:52: ONCE, Dosing Weight 130, kg, PRN Agitation, Start date: 12/26/19 14:52:00 CDT Haldol 2019-0 No 5 mg, Memoria 5- Route: IV, l 19:52: ONCE, Dosing Weight 130, kg, PRN Agitation, Start date: 12/26/19 14:52:00 CDT ocular 2019-0 No Notes: Memoria lubricant 12-25 (Same as: l 17:00: Lacri-Lube [place] 00 , Puralube, Duratears Naturale, Artificial Tears, and Tears Again ) ocular No Notes: Memoria lubricant 5-09 (Same as: l 17:00: Lacri-Lube [place] 00 , Puralube, Duratears Naturale, Artificial Tears, and Tears Again ) Isolyte S No Notes: Memori a PH 7.4 5- (Same as: l 1,000 mL 16:33: Isolyte S Herm rogelio 00 PH7.4, Normosol-R PH 7.4, Plasma-Lyt e A ) Isolyte S No Notes: Memori a PH 7.4 5- (Same as: l 1,000 mL 16:33: Isolyte S Herm rogelio 00 PH7.4, Normosol-R PH 7.4, Plasma-Lyt e A ) Magnesium No Notes: Memori a Sulfate - WASTE: F/P l 16:27: - Sink; E [place] - Municipal Trash Bin Magnesium No Notes: Memori a Sulfate - WASTE: F/P l 16:27: - Sink; E [place] 00 - Municipal Trash Bin Tramadol 0 No Notes: Not Mem oria - to exceed l 16:26: 400mg/day. (Same As: Ultram) Tramadol No Notes: Not Mem oria 5-09 to exceed l 16:26: 400mg/day. [place] 00 (Same As: Ultram) Acetaminoph No Notes: Max Memoria en 5-09 acetaminop l 16:25: hen 4000 [place] 00 mg/day (4 gm/day). (Same as: Tylenol Extra Strength) gabapentin No Notes: Memor ia 5-09 (Same as: l 16:25: Neurontin) Acetaminoph No Notes: Max Memoria en 5-09 acetaminop l 16:25: hen 4000 [place] 00 mg/day (4 gm/day). (Same as: Tylenol Extra Strength) gabapentin No Notes: Memor ia 5-09 (Same as: l 16:25: Neurontin) chlorhexidi 2020-0 No Notes: Noe gabriel ne 12-25 (Same As: l gluconate 16:23: Peridex) Herm rogelio 1.2 MG/ML 00 Mouthwash chlorhexidi No Notes: Noe gabriel ne 12-25 (Same As: l gluconate 16:23: Peridex) Herm rogelio 1.2 MG/ML 00 Mouthwash Isolyte S No Notes: Memori a PH 7.4 12-25 (Same as: l 1,000 mL 15:19: Isolyte S Herm rogelio 00 PH7.4, Normosol-R PH 7.4, Plasma-Lyt e A ) Isolyte S 0 No Notes: Memori a PH 7.4 12-25 (Same as: l 1,000 mL 15:19: Isolyte S Herm rogelio 00 PH7.4, Normosol-R PH 7.4, Plasma-Lyt e A ) propofol 10 No Notes: If M emoria mg/mL 12-25 Diprivan - l (Titrate.) 14:15: change Lila nn IV 1,000 mg 00 bottle & tubing every 12 hr Per state nursing law propofol can only be given by a nurse if patient is intubated or being intubated (unless the nurse is a MAKE UP MAN). Same as: Diprivan propofol 10 No Notes: If M emoria mg/mL 12-25 Diprivan - l (Titrate.) 14:15: change Lila nn IV 1,000 mg 00 bottle & tubing every 12 hr Per state nursing law propofol can only be given by a nurse if patient is intubated or being intubated (unless the nurse is a MAKE UP MAN). Same as: Diprivan fentaNYL No Route: IV, Mem oria (ANES) 12-25 Drug form: l 13:48: INJ, ONCE, [place] 00 Stop date: 12/26/19 8:48:00 CDT fentaNYL 2019-0 No Route: IV, Mem oria (ANES) 12-25 Drug form: l 13:48: INJ, ONCE, [place] Stop date: 12/26/19 8:48:00 CDT norepinephr No Route: IV, Memoria ine (ANES) 12-25 Drug form: l 13:22: INJ, ONCE, [place] 00 Stop date: 12/26/19 8:22:00 CDT norepinephr 2020-0 No Route: IV, Memoria ine (ANES) 12-25 Drug form: l 13:22: INJ, ONCE, Stop date: 12/26/19 8:22:00 CDT rocuronium 2020-0 No Route: IV, M emoria (ANES) 12-25 Drug form: l 13:17: INJ, ONCE, Stop date: 12/26/19 8:17:00 CDT rocuronium 2020-0 No Route: IV, M emoria (ANES) 12-25 Drug form: l 13:17: INJ, ONCE, Stop date: 12/26/19 8:17:00 CDT fentaNYL 2020-0 No Route: IV, Mem oria (ANES) 12-25 Drug form: l 13:02: INJ, ONCE, Stop date: 12/26/19 8:02:00 CDT fentaNYL 2020-0 No Route: IV, Mem oria (ANES) 12-25 Drug form: l 13:02: INJ, ONCE, Stop date: 12/26/19 8:02:00 CDT ketAMINE 2020-0 No Route: IV, Mem oria (ANES) 12-25 Drug form: l 12:57: INJ, ONCE, Stop date: 12/26/19 7:57:00 CDT rocuronium 2020-0 No Route: IV, M emoria (ANES) 12-25 Drug form: l 12:57: INJ, ONCE, Stop date: 12/26/19 7:57:00 CDT ketAMINE 2020-0 No Route: IV, Mem oria (ANES) 12-25 Drug form: l 12:57: INJ, ONCE, Stop date: 12/26/19 7:57:00 CDT rocuronium 2020-0 No Route: IV, M emoria (ANES) 12-25 Drug form: l 12:57: INJ, ONCE, Stop date: 12/26/19 7:57:00 CDT ceFAZolin 2020-0 No Route: IV, Me moria (ANES) 12-25 Drug form: l 12:47: INJ, ONCE, [place] Stop date: 12/26/19 7:47:00 CDT calcium 2019-0 No Route: IV, Noe gabriel chloride - Drug form: l (ANES) 12:47: INJ, ONCE, Lila nn Stop date: 12/26/19 7:47:00 CDT ceFAZolin 2020-0 No Route: IV, Me moria (ANES) 12-25 Drug form: l 12:47: INJ, ONCE, [place] Stop date: 12/26/19 7:47:00 CDT calcium 2020-0 No Route: IV, Noe gabriel chloride 12-25 Drug form: l (ANES) 12:47: INJ, ONCE, Lila nn Stop date: 12/26/19 7:47:00 CDT Sodium 2019-0 No Route: IV, Memor ia Chloride 12-25 Drug form: l 0.9% IV 12:04: INJ, Start Herm rogelio (ANES) date: mL + 12/26/19 vancomycin 7:04:00 (ANES) 1500 CDT, Stop mg date: 12/26/19 8:04:00 CDT Sodium 2019-0 No Route: IV, Memor ia Chloride 12-25 Drug form: l 0.9% IV 12:04: INJ, Start Herm rogelio (ANES) date: mL + 12/26/19 vancomycin 7:04:00 (ANES) 1500 CDT, Stop mg date: 12/26/19 8:04:00 CDT Isolyte S 2019-0 No Route: IV, Me moria PH 7.4 5- Total l (ANES) 500 11:55: Volume: Herm rogelio mL 00 500, Start date: 12/26/19 6:55:00 CDT, Stop date: 12/26/19 7:55:00 CDT Isolyte S 2020-0 No Route: IV, Me moria PH 7.4 5- Total l (ANES) 500 11:55: Volume: Herm rogelio mL 00 500, Start date: 12/26/19 6:55:00 CDT, Stop date: 12/26/19 7:55:00 CDT Keppra 2019-0 No 1,000 mg, Memori a 5 Route: l 11:34: IVPB, 00 ONCE, Dosing Weight 170, kg, Priority: STAT, Start date: 12/26/19 6:34:00 CDT, Stop date: 12/26/19 6:34:00 CDT Keppra 2020-0 No 1,000 mg, Memori a 12-25 Route: l 11:34: IVPB, [place] 00 ONCE, Dosing Weight 170, kg, Priority: STAT, Start date: 12/26/19 6:34:00 CDT, Stop date: 12/26/19 6:34:00 CDT Fentanyl 2020-0 No 1,000 Memoria 5-09 microgram, l 11:03: 20 mL, Rate: Titrate, Start Dose: 50 microgram/ hr, Titration: 25 microgram/ hour every 15 minutes, Goal(s): RASS -2, Max Dose: 300 microgram/ hr, Route: IV, Dosing Weight 170 kg, Total Volume: 20, Start date: 12/26/19 6:03:00 CDT, Durat... Midazolam 2020-0 No Notes: Memori a 12-25 (Same as: l 11:03: Versed) Fentanyl 2020-0 No 1,000 Memoria 5-09 microgram, l 11:03: 20 mL, Rate: Titrate, Start Dose: 50 microgram/ hr, Titration: 25 microgram/ hour every 15 minutes, Goal(s): RASS -2, Max Dose: 300 microgram/ hr, Route: IV, Dosing Weight 170 kg, Total Volume: 20, Start date: 12/26/19 6:03:00 CDT, Durat... Midazolam 2020-0 No Notes: Memori a 12-25 (Same as: l 11:03: Versed) Iohexol 2020-0 No 100 mL, Memoria 12-25 Route: l 10:18: IVP, Drug Form: SOLN, Dosing Weight 170, kg, ONCALL, STAT, Start date: 12/26/19 5:18:00 CDT, Duration: 1 doses or times, Dose = 2.2ml/kg, Max dose = 100ml -- "To be infused by Radiology Staff ONLY" Iohexol 2020-0 No 100 mL, Memoria 12-25 Route: l 10:18: IVP, Drug [place] Form: SOLN, Dosing Weight 170, kg, ONCALL, STAT, Start date: 12/26/19 5:18:00 CDT, Duration: 1 doses or times, Dose = 2.2ml/kg, Max dose = 100ml -- "To be infused by Radiology Staff ONLY" Saline No Notes: Memoria Flush 0.9% 5-09 (Same as: l 09:59: BD [place] 00 Posiflush) Saline No Notes: Memoria Flush 0.9% 5-09 (Same as: l 09:59: BD [place] 00 Posiflush) Vital Signs Vital Name Observation Time Observation Value Comments Source Systolic (mm Hg) 2020-03-03 [facility] He rmann 19:14:00 Diastolic (mm Hg) 2020-03-03 [facility] ermann 19:14:00 Heart Rate 2020-03-03 [facility] Carlos Alberto n 19:14:00 Respitory Rate 2020-03-03 [facility] Herm rogelio 19:14:00 Height 2020-03-03 180.34 cm [facility] Con[facility] n 19:14:00 BMI Calculated 2020-03-03 [facility] rogelio 19:14:00 Weight 2020-03-03 [facility] Carlos Alberto n 19:14:00 Systolic blood 2020-02-15 131 mm[Hg] Location: [facility] 13:56:00 Position: [place] [facility] Diastolic blood 2020-02-15 84 mm[Hg] Location: [facility] 13:56:00 Position: [place] [facility] Body height 2020-02-15 71 [in_us] [facility] 13:56:00 [place] [facility] Weight 2020-02-15 315 [lb_av] [facility] 13:56:00 [place] [facility] Body mass index 2020-02-15 43.93 kg/m2 [place] [facility] (BMI) [Ratio] 13:56:00 [place] [facility] Body temperature 2020-02-15 97.9 [degF] Method: [facility] 13:56:00 Tympanic [place] [facility] Heart Rate 2020-02-15 103 /min [facility] 13:56:00 [place] [facility] Respitory Rate 2020-01-23 [facility] 12:58:00 Heart Rate 2020-01-23 [facility] Carlos Alberto n 12:12:00 Systolic (mm Hg) 2020-01-23 [facility] 12:12:00 Diastolic (mm Hg) 2020-01-23 [facility] 12:12:00 Heart Rate 2020-01-23 [facility] Carlos Alberto n 00:57:00 Respitory Rate 2020-01-23 [facility] rogelio 00:57:00 Systolic (mm Hg) 2020-01-23 [facility] 00:57:00 Diastolic (mm Hg) 2020-01-23 [facility] 00:57:00 Heart Rate 2020-01-22 [facility] Carlos Alberto n 17:30:00 Systolic (mm Hg) 2020-01-22 [facility] 17:30:00 Diastolic (mm Hg) 2020-01-22 [facility] 17:30:00 Respitory Rate 2020-01-22 [facility] 13:08:00 Height 2020-01-14 180.34 cm [facility] Carlos Alberto n 03:31:00 Weight 2020-01-14 [facility] Carlos Alberto n 03:31:00 BMI Calculated 2020-01-14 [facility] 03:31:00 Temperature Oral 2020-01-14 96.7 F [facility] (F) 03:20:00 Height 2020-01-14 180.34 cm [facility] Carlos Alberto n 03:00:00 Heart Rate 2020-01-14 [facility] Carlos Alberto n 01:08:00 Respitory Rate 2020-01-14 [facility] 01:08:00 Temperature Oral 2020-01-14 98.7 F [facility] (F) 01:08:00 Systolic (mm Hg) 2020-01-14 [facility] 01:08:00 Diastolic (mm Hg) 2020-01-14 [facility] 01:08:00 Temperature Oral 2020-01-13 98.1 F [facility] (F) 21:23:00 Heart Rate 2020-01-13 [facility] 21:23:00 Respitory Rate 2020-01-13 [facility] 21:23:00 Systolic (mm Hg) 2020-01-13 [facility] 21:23:00 Diastolic (mm Hg) 2020-01-13 [facility] 21:23:00 Systolic (mm Hg) 2020-01-13 [facility] 19:15:00 Diastolic (mm Hg) 2020-01-13 [facility] 19:15:00 Temperature Oral 2020-01-13 98.4 F [facility] (F) 16:40:00 Heart Rate 2020-01-13 [facility] 16:40:00 Respitory Rate 2020-01-13 [facility] 16:40:00 Height 2019-12-30 182.88 cm [facility] 20:30:00 Height 2019-12-30 182.88 cm [facility] 16:20:00 Height 2019-12-30 182.88 cm [facility] 12:35:00 Weight 2019-12-30 [facility] 10:37:00 Weight 2019-12-26 [facility] 15:17:00 BMI Calculated 2019-12-26 [facility] 15:17:00 BMI Calculated 2019-12-26 [facility] 10:16:00 Weight 2019-12-26 [facility] 10:16:00 Procedures Procedure Date / Time Performed Performing Clinician Tyson e [U] XRAY PELVIS MIN 3 2020-04-19 00:00:00 [facility] VWS [id number] Physicians US Extremity lower 2020-04-01 00:00:00 [facility] venous doppler bilat Physicians [id number] Post Op Promis 29 2020-01-29 00:00:00 [facility] Survey Physicians Encounters Start End Encounter Admission Attending Care Care Encounter Source Date/Time Date/Time Type Type Clinicians Facility Department ID 2021-04-10 2021-04-10 Letter RICHELLE Miller [id number] 00:00:00 00:00:00 (Out) Mariela ARAUJO [id number] [place] [id number] 2021-02-13 2021-02-13 Office SUSAN Scott [id number] 09:23:26 10:11:53 Visit Dejamor A [employer] [id number] [place] [id number] Profcarla [id number] [place] [address] 2021-02-13 2021-02-13 Orders Doctor PEOPLES [id number] 00:00:00 00:00:00 Only Unassigned, VAN [id number] [place] [id number] 2020-09-08 2020-09-08 Appointmen [facility] Orthopedics [id number] Univers 09:30:00 09:30:00 t; CARLI SHIRLEY, [facility] subha [facility]CE [facility] 2020-04-28 2020-04-28 Appointmen IVAN, [facility] [id number] Univers 09:15:00 09:15:00 t; ZEB, ity shirin LOVE, P.A. [facility] 2020-04-01 2020-04-02 [place] [id number] [facility] 18:33:00 04:59:00 Services r Outpatient 00 l Imaging [facility] 2020-04-01 2020-04-02 [place] [id number] Memoria 18:33:00 04:59:00 Services r Outpatient 00 l Imaging [facility] 2020-04-01 2020-04-01 Outpatient Ivan OIH MHOIH [id number] 13:33:00 23:59:00 Zeb Loren 00 2020-04-01 2020-04-01 Appointmen [facility] Orthopedics [id number] Univers 11:00:00 11:00:00 t; ZEB, Trauma subha LOVE, P.A. [facility] [place], [place] [facility] 2020-03-03 2020-03-04 [place]patient [place]Fl[place] BT- [id number] Memoria 18:58:00 04:59:00 r Adult BI 01 l (ABIR) [place] 2020-03-03 2020-03-04 Outpatient nullFlavo TR BT- [id number] Memoria 18:58:00 04:59:00 r Adult BI 01 l (ABIR) [place] 2020-03-03 2020-03-03 Outpatient [place] Ann MHTIRR MHTIRR [id number] 13:58:00 23:59:00 01 2020-03-03 2020-03-03 Appointmen [place] ANN [facility] UTP [id number] Univers 13:45:00 13:45:00 t; Shilpa ANN [facility] 2020-02-25 2020-02-25 Appointmen FERN, [facility] [id number] Univers 11:45:00 11:45:00 t; CARLI SHIRLEY ity o f JOSHUA, M.D. [place] [facility] 2020-02-15 2020-02-15 Appointmen TRAUMACLINI [facility] [id number] Univers 13:00:00 13:00:00 t; MD [facility] - ity of TRAUMACLIN [facility] MD TICO [facility] 2020-02-10 2020-02-10 Appointmen AMANDA ELMORE Orthopedics [id number] Univers 13:00:00 13:00:00 t; wero CAIN [facility] Baltazar Montero [facility] PAY[place], Orthopedic ysici P.AJonathon and Spine [facility] 2020-01-29 2020-01-29 Appointmen IVAN, [facility] [id number] Univers 09:00:00 09:00:00 t; subha CARRINGTON PLaura [place] Kyra CARRINGTON [facility] 2020-01-14 2020-01-23 Inpatient nullFlavo TIRR [id number] Memoria 03:20:00 16:58:00 Rehab r Memorial 00 l [facility] 2020-01-14 2020-01-23 Inpatient nullFlavo TIRR [id number] Memoria 03:20:00 16:58:00 Rehab r Memorial 00 l [facility] 2020-01-13 2020-01-23 Outpatient JUAN CARLOS GandhiTIRJaspal MHTIRR [id number] 22:20:00 11:58:00 Desmond 00 2019-12-26 2020-01-14 Inpatient nullFlavo [facility] [id number] Memoria 09:08:30 03:12:[address] 2019-12-26 2020-01-14 Inpatient nullFlavo [facility] [id number] Memoria 09:08:30 03:12:[address] 2019-12-26 2020-01-13 Outpatient Geovanna, [facility] [id number] 04:08:30 22:12:00 Nando Johnson 2019-12-29 2019-12-29 Appointmen FERN [facility] [id number] Univers 08:00:00 08:00:00 t; CARLI SHIRLEY ity o f JOSHUA, M.D. [place] [facility] ans Results Test Description Test Time Test Comments Results Result Sour e Comments [U] XRAY PELVIS 2020-09-08 Images Universit y of MIN 3 VWS [id number] 09:19:00 acquired, not [place] reported on Physicians this accession number. [U] XRAY PELVIS 2020-04-01 Images Universit y of MIN 3 VWS [id number] 11:26:00 acquired, not [place] reported on Physicians this accession number. [U] XRAY PELVIS 2020-02-25 Images Universit y of MIN 3 VWS [id number] 12:06:00 acquired, not [place] reported on Physicians this accession number. [U] XRAY SPINE 2020-02-10 Images University of THORACIC 2 VWS 13:39:00 acquired, not [place] [id number] reported on Physicians this accession number. [U] XRAY SPINE 2020-02-10 Images University of CERVICAL 2 OR 3 13:30:00 acquired, not [place] VWS [id number] reported on Physicians this accession number. [U] XRAY PELVIS 2020-01-29 Images Universit y of MIN 3 VWS [id number] 09:24:00 acquired, not [place] reported on Physicians this accession number. CHEM PANEL 2020-01-22 93 Memorial 09:38:00 [place] CHEM PANEL 2020-01-22 16 Memorial 09:38:00 [place] CHEM PANEL 2020-01-22 0.62 Memorial 09:38:00 [place] CHEM PANEL 2020-01-22 133 Memorial 09:38:00 [place] CHEM PANEL 2020-01-22 3.9 Memorial 09:38:00 [place] CHEM PANEL 2020-01-22 102 Memorial 09:38:00 [place] CHEM PANEL 2020-01-22 21 Memorial 09:38:00 [place] CHEM PANEL 2020-01-22 9.4 Memorial 09:38:00 [place] CHEM PANEL 2020-01-22 13.9 Memorial 09:38:00 [place] CHEM PANEL 2020-01-22 134 Memorial 09:38:00 [place] CHEM PANEL 2020-01-22 93 Memorial 09:38:00 [place] CHEM PANEL 2020-01-22 16 Memorial 09:38:00 [place] CHEM PANEL 2020-01-22 0.62 Memorial 09:38:00 [place] CHEM PANEL 2020-01-22 133 Memorial 09:38:00 [place] CHEM PANEL 2020-01-22 3.9 Memorial 09:38:00 [place] CHEM PANEL 2020-01-22 102 Memorial 09:38:00 [place] CHEM PANEL 2020-01-22 21 Memorial 09:38:00 [place] CHEM PANEL 2020-01-22 9.4 Memorial 09:38:00 [place] CHEM PANEL 2020-01-22 13.9 Memorial 09:38:00 [place] CHEM PANEL 2020-01-22 134 Memorial 09:38:00 [place] CHEM PANEL 2020-01-21 100 Memorial 09:04:00 [place] CHEM PANEL 2020-01-21 18 Memorial 09:04:00 [place] CHEM PANEL 2020-01-21 0.60 Memorial 09:04:00 [place] CHEM PANEL 2020-01-21 135 Memorial 09:04:00 [place] CHEM PANEL 2020-01-21 3.9 Memorial 09:04:00 [place] CHEM PANEL 2020-01-21 103 Memorial 09:04:00 [place] CHEM PANEL 2020-01-21 22 Memorial 09:04:00 [place] CHEM PANEL 2020-01-21 9.3 Memorial 09:04:00 [place] CHEM PANEL 2020-01-21 13.9 Memorial 09:04:00 [place] CHEM PANEL 2020-01-21 136 Memorial 09:04:00 [place] CHEM PANEL 2020-01-21 100 Memorial 09:04:00 [place] CHEM PANEL 2020-01-21 18 Memorial 09:04:00 [place] CHEM PANEL 2020-01-21 0.60 Memorial 09:04:00 [place] CHEM PANEL 2020-01-21 135 Memorial 09:04:00 [place] CHEM PANEL 2020-01-21 3.9 Memorial 09:04:00 [place] CHEM PANEL 2020-01-21 103 Memorial 09:04:00 [place] CHEM PANEL 2020-01-21 22 Memorial 09:04:00 [place] CHEM PANEL 2020-01-21 9.3 Memorial 09:04:00 [place] CHEM PANEL 2020-01-21 13.9 Memorial 09:04:00 [place] CHEM PANEL 2020-01-21 136 Memorial 09:04:00 [place] HEMATOLOGY 2020-01-20 8.3 Memorial 09:57:00 [place] HEMATOLOGY 2020-01-20 5.1 Memorial 09:57:00 [place] HEMATOLOGY 2020-01-20 0.5 Memorial 09:57:00 [place] HEMATOLOGY 2020-01-20 4.2 Memorial 09:57:00 [place] HEMATOLOGY 2020-01-20 2.1 Memorial 09:57:00 [place] HEMATOLOGY 2020-01-20 0.6 Memorial 09:57:00 [place] HEMATOLOGY 2020-01-20 0.4 Memorial 09:57:00 [place] CHEM PANEL 2020-01-20 97 [facility] 09:57:00 [place] CHEM PANEL 2020-01-20 19 Memorial 09:57:00 [place] CHEM PANEL 2020-01-20 0.62 Memorial 09:57:00 [place] CHEM PANEL 2020-01-20 134 Memorial 09:57:00 [place] CHEM PANEL 2020-01-20 4.0 Memorial 09:57:00 [place] CHEM PANEL 2020-01-20 103 Memorial 09:57:00 [place] CHEM PANEL 2020-01-20 21 Memorial 09:57:00 [place] CHEM PANEL 2020-01-20 9.4 Memorial 09:57:00 [place] CHEM PANEL 2020-01-20 14.0 [facility] 09:57:00 [place] CHEM PANEL 2020-01-20 134 Memorial 09:57:00 [place] HEMATOLOGY 2020-01-20 7.4 Memorial 09:57:00 [place] HEMATOLOGY 2020-01-20 3.41 Memorial 09:57:00 [place] HEMATOLOGY 2020-01-20 10.2 Memorial 09:57:00 [place] HEMATOLOGY 2020-01-20 30.5 Memorial 09:57:00 [place] HEMATOLOGY 2020-01-20 89.3 [facility] 09:57:00 [place] HEMATOLOGY 2020-01-20 09:57:00 Test Item Value Reference Range Interpretation Comme nts MCH (test code = MCH) 29.8 pg 27.0-31.0 [facility] XtvpryaJDUMDXYSIK5088-19-96 09:57:0033.3[facility]ann[facility]MATOLOGY 2020-01-20 09:57:0015.2[facility] YchnamyLEOHSJGNXP8026-38-73 09:57:02958Korrtvtt HermannCHEM HGWVG4342-03-97 09:57:0097[facility] HermannCHEM AUHQT5676-49-46 09:57:0019[facility] HermannCHEM CZBDT4531-80-58 09:57:000.62[facility] HermannCHEM YHEZA3013-91-38 09:57:46132Rsizmkoh HermannCHEM ZIWVO6115-96-48 09:57:004.0 [facility]annCHEM LPDWT1425-32-58 09:57:51539Wrhamyhn HermannCHEM PANEL 2020-01-20 09:57:0021[facility] HermannCHEM RXIKC2899-74-24 09:57:009.4[facility] ImkywboDMROUROIGO9961-35-41 09:57:007.2[facility] HermannCHEM CQEKI0471-64-11 09:57:0014.0[facility] HermannCHEM DZYRO6903-00-51 09:57:08784Qshvaoju [place] AYKQAIUMGL0179-48-09 09:57:007.4[facility] OkeccoeFUQBZWZMKW4438-63-62 09:57:00 3.41[facility] NczczirTJGRQYROFD9647-22-03 09:57:0010.2[facility] HermannHEMATOLOGY 2020-01-20 09:57:0030.5[facility] JcouihwFZXTGTBGQN3428-00-38 09:57:0089.3[facility] UxavgdwRBAUAHWCYC0192-72-46 09:57:00 Test Item Value Reference Range Interpretation Comments MCH (test code = MCH) 29.8 pg 27.0-31.0 [facility] SjebtjjGJOFCVVKKI7556-61-46 09:57:0033.3[facility] HermannHEMATOLOGY 2020-01-20 09:57:0015.2[facility] DgodqsjJPPCPXYKBU0104-51-05 09:57:0057.4[facility] IwfssmqCSOTBDEDXC4087-16-39 09:57:89330Bsislrds SbxnbduVUYJDAJHBP8979-86-70 09:57:007.2[facility] FqucrifUJBUVQBYUL0618-61-47 09:57:0057.4[facility] [place] YAIHQGPFQH8482-77-62 09:57:0028.7[facility] NsqkzwyLNWLKSGFVS6555-58-80 09:57:00 8.3[facility] EixjcqcFZDBHIVQHM5258-75-01 09:57:005.1[facility] HermannHEMATOLOGY 2020-01-20 09:57:000.5[facility] CzoahyzPQKHGRVXDX1811-30-24 09:57:004.2[facility] SuuxnljAOYFECOQHA9221-13-82 09:57:002.1[facility] GdfdnmsKZBVCXOMRF6011-03-87 09:57:000.6[facility] UnaewthIBQROAEFOB1185-92-41 09:57:0028.7[facility] GALTFFIWCZ7456-67-41 09:57:000.4[facility] PmsezayNJWNRIHDGA5418-36-50 09:49:00 60.6[facility] TqxzwhoJVFJAIYHYX9879-73-22 09:49:0027.3[facility] HermannHEMATOLOGY 2020-01-18 09:49:007.8[facility] PmivufdFXOYVEQDAZ4313-89-91 09:49:003.4[facility] QfwhmfyGXYUSJMZAK1796-82-44 09:49:000.9[facility] JoeexunKGLQJCOSUJ9226-03-66 09:49:004.6[facility] DahoataCGLPPBRSOC6807-37-33 09:49:002.1[facility] [place] FIQTVLBYMC6190-32-61 09:49:000.6[facility] MjcklalARMBJHFLLL0662-39-04 09:49:000.3 [facility] EsfmgayJHUXWVAWGS9745-45-23 09:49:000.1[facility] HermannHEMATOLOGY 2020-01-18 09:49:007.5[facility] FmotpqdHSFUYLZMMV2225-81-07 09:49:003.41[facility] XldygovBMHSZVYOJP3319-85-65 09:49:0010.2[facility] FzflboiOKGWNXUQLD5487-37-47 09:49:0030.9[facility] TcirumuCIZAAXRLEW0474-02-47 09:49:0090.6[facility] [place] AMBWOALTDW1408-70-02 09:49:00 Test Item Value Reference Range Interpretation Comments MCH (test code = MCH) 30.0 pg 27.0-31.0 [facility] NlmlhbgOQOJPJTZJK8345-33-01 09:49:0033.1[facility] HermannHEMATOLOGY 2020-01-18 09:49:0015.4[facility] QgkczxcSJZANVXOTR7669-54-34 09:49:50005Qxkqqvcr XbpktkaDIMLZOVONA1480-10-37 09:49:007.4[facility] HermannCHEM DDKGD4057-64-56 09:49:0036[facility] HermannCHEM ENVOG7669-72-72 09:49:003.2[facility] HermannCHEM DPPPU4335-57-01 09:49:87362Oyxsvvwn HermannCHEM MLSKT5830-39-85 09:49:000.4 [facility] HermannCHEM XOXLQ9373-90-04 09:49:008.5[facility] HermannCHEM PANEL 2020-01-18 09:49:00 Test Item Value Reference Range Interpretation Comments B/C Ratio (test code = B/C Ratio) 34 1 6-25 [facility] HermannCHEM MWWZB9073-56-96 09:49:005.3[facility] HermannCHEM PANEL 2020-01-18 09:49:00 Test Item Value Reference Range Interpretation Comments A/G Ratio (test code = A/G Ratio) 0.6 1 0.7-1.6 [facility] HermannCHEM KFJSP9030-13-54 09:49:0017[facility] HermannHEMATOLOGY 2020-01-18 09:49:0060.6[facility] UqahebyYGLBYOKQLX9422-63-25 09:49:0027.3[facility] MjyopshRDRVMEPPRA3473-86-19 09:49:007.8[facility] ZaxpfeuQNUDNWQNEY1547-87-92 09:49:003.4[facility] QkrkgzdXONPSHCLKI1405-78-16 09:49:000.9[facility] [place] SDLIWKENAG0484-03-28 09:49:004.6[facility] XalcsmxWVXUPFVXLI7433-99-13 09:49:002.1 [facility] AjptnchYHAOALAFRC4740-68-80 09:49:000.6[facility] HermannHEMATOLOGY 2020-01-18 09:49:000.3[facility] HwdqxddCWHGPXLHWC5446-12-75 09:49:000.1[facility] KjbnnjyKKIUPYICUG1779-58-83 09:49:007.5[facility] AsdmpzfHRENLQORYB7144-58-35 09:49:003.41[facility] NxqhukrPCMYATVJJH0714-76-44 09:49:0010.2[facility] [place] LOCEQMJIEI7483-45-15 09:49:0030.9[facility] KcnubbcJIIDYBKNWW8140-53-62 09:49:00 90.6[facility] CmcfuidJQCKKJFLKN0258-72-88 09:49:00 Test Item Value Reference Range Interpretation Comments MCH (test code = MCH) 30.0 pg 27.0-31.0 [facility] QtdxzqfSXYHSCLJBC8161-56-71 09:49:0033.1[facility] HermannHEMATOLOGY 2020-01-18 09:49:0015.4[facility] QmtjwulEGWEUJYIIJ1875-06-94 09:49:76823Hozrfemz BpafnpmGKVYPCYBNY3791-11-96 09:49:007.4[facility] HermannCHEM CNNVQ0473-45-45 09:49:0036[facility] HermannCHEM GCRYC5776-23-38 09:49:003.2[facility] HermannCHEM TEBOX1393-41-13 09:49:17088Jjjdymnf HermannCHEM DGMPE8175-42-78 09:49:000.4 [facility] HermannCHEM XGNXV2024-92-68 09:49:008.5[facility] HermannCHEM PANEL 2020-01-18 09:49:00 Test Item Value Reference Range Interpretation Comments B/C Ratio (test code = B/C Ratio) 34 1 6-25 [facility] HermannCHEM RXMII5818-53-38 09:49:005.3[facility] HermannCHEM PANEL 2020-01-18 09:49:00 Test Item Value Reference Range Interpretation Comments A/G Ratio (test code = A/G Ratio) 0.6 1 0.7-1.6 [facility] HermannCHEM XCMEM9800-86-49 09:49:0017[facility] HermannURINE CHEM 2020-01-15 10:28:0034[facility] HermannURINE JGPT7464-93-10 10:28:70500Ykmwswyf HermannURINE DCMS0797-00-82 10:28:0034[facility] HermannURINE EFAI5716-99-25 10:28:62126Daqonpsr ZvurmzaJOBIXFWIIR9681-87-94 10:07:0010.2[facility] XQJRCUSZMU7735-62-84 10:07:003.33[facility] BotsjgjKVSABVIDFX0698-73-87 10:07:00 10.0[facility] HubrpjaIXAENSDJAF0762-35-96 10:07:0029.7[facility] HermannHEMATOLOGY 2020-01-15 10:07:0089.3[facility] TfzhszcWJNLUQVUGS7136-98-04 10:07:00 Test Item Value Reference Range Interpretation Comments MCH (test code = MCH) 30.2 pg 27.0-31.0 [facility] MyqjbcdMIZRJYJXIK8578-83-08 10:07:0033.8[facility] HermannHEMATOLOGY 2020-01-15 10:07:0015.4[facility] FwrvyqgNOVQKJUPPM3018-50-19 10:07:05479Sjiadxyd HlierfjQXFZVWFJLW3681-49-77 10:07:007.2[facility] MolalnrQPIOHHXXPZ4773-88-15 10:07:00Normal (01/15/20 5:07 AM)[facility] XgwqtbfREZPMHIQTL8866-26-93 10:07:00 61.1[facility] SlxvxcgJNZQJDZMZM2793-88-41 10:07:0027.6[facility] HermannHEMATOLOGY 2020-01-15 10:07:009.2[facility] GqlshnbLWMVPIWORJ1306-83-20 10:07:001.5[facility] GcfnykvWVCCMFBBEY5205-45-68 10:07:000.6[facility] VlwvmjkAAHSBQILEY2276-55-00 10:07:006.2[facility] SqciejyHGBRCDCFAY2677-19-83 10:07:002.8[facility] [place] VQLLJJXIHT2057-09-71 10:07:000.9[facility] WpcmuwlZOSOTJMYEW6494-49-04 10:07:000.1 [facility] ZtfpykzMZSDGJTJNH4803-56-66 10:07:000.1[facility] HermannHEMATOLOGY 2020-01-15 10:07:001+ *ABN*(01/15/20 5:07 AM)[facility] PjdxicgFDXACWRDET5992-74-35 10:07:00Moderate *ABN*(01/15/20 5:07 AM)[facility] DimgekaZEYDBQXNTW4560-52-60 10:07:0010.2[facility] YfgwcqxOFKQXMOFML9783-28-62 10:07:003.33[facility] WJZKQPKBES6685-47-84 10:07:0010.0[facility] GadinbqNYVNNALXBG0362-45-80 10:07:00 29.7[facility] LleadfgZTBBAKRBBE1195-44-15 10:07:0089.3[facility] HermannHEMATOLOGY 2020-01-15 10:07:00 Test Item Value Reference Range Interpretation Comments MCH (test code = MCH) 30.2 pg 27.0-31.0 [facility] AxlgyyqLOYILVAHDQ6646-17-10 10:07:0033.8[facility] HermannHEMATOLOGY 2020-01-15 10:07:0015.4[facility] PbpxnvmUWHZURGDQX5574-82-69 10:07:15237Ylmzohdl LiplphwYTOESBLMKQ6606-17-55 10:07:007.2[facility] MaxzvmhWDESGPSJQL0520-46-09 10:07:00Normal (01/15/20 5:07 AM)[facility] YkzqsivKDAWMBKGHO2325-46-41 10:07:00 61.1[facility] NgdopjfIJNQXIUZIZ8018-71-86 10:07:0027.6[facility]annHEMATOLOGY 2020-01-15 10:07:009.2[facility] AqqmkntZSCCOMIPVN6415-15-71 10:07:001.5[facility] JsvnaqvOGUUUJZNLK1422-09-05 10:07:000.6[facility] GrnspjrLAGCDBXYKF1034-92-68 10:07:006.2[facility] YuqtzxwMDANUGEZBY6306-43-59 10:07:002.8[facility] XOZKHZZAVR6380-44-96 10:07:000.9[facility] YyztjnqKPJAMMZFZZ5322-76-51 10:07:000.1 [facility] QurfgkwBJWUULGGPJ7065-11-51 10:07:000.1[facility] HermannHEMATOLOGY 2020-01-15 10:07:001+ *ABN*(01/15/20 5:07 AM)[facility] ComhdwjYOLQXUOYKH7927-92-30 10:07:00Moderate *ABN*(01/15/20 5:07 AM)[facility] HermannCHEM LMLLQ9835-09-94 10:06:24611Qtaqdzla HermannCHEM TNLLK3342-82-38 10:06:00952Tnjxyicf HermannCHEM MJWWT5108-48-40 10:17:0041[facility] HermannCHEM YYFIT4307-47-35 10:17:002.9 [facility] HermannCHEM YHFIY6414-08-18 10:17:41679Htfvsnaj HermannCHEM PANEL 2020-01-14 10:17:000.6[facility] HermannCHEM TDJUO1082-75-15 10:17:008.2[facility] HermannCHEM ZYRNW4421-67-13 10:17:0019[facility] HermannCHEM FEGKM3506-98-93 10:17:00 Test Item Value Reference Range Interpretation Comments B/C Ratio (test code = B/C Ratio) 24 1 6-25 [facility]annCHEM SHSQL6143-00-82 10:17:005.3[facility] HermannCHEM PANEL 2020-01-14 10:17:00 Test Item Value Reference Range Interpretation Comments A/G Ratio (test code = A/G Ratio) 0.5 1 0.7-1.6 [facility]annCHEM HLMLR6562-09-04 10:17:004.4[facility] HermannCHEM PANEL 2020-01-14 10:17:002.2[facility] YbbvxsaUTAAMDBPLJ0772-67-30 10:17:000.1[facility] DdumrvzISDKZQEZJI3661-45-76 10:17:0023.5[facility] RvfodhlQGWMNU3633-11-20 10:17:53032Opdyzfxx PdeykwgSNBMHU6154-88-79 10:17:64019Gpzvofrn HermannLIPIDS 2020-01-14 10:17:0023[facility] BmqadvvYPSBKN1153-52-22 10:17:00 Test Item Value Reference Range Interpretation Comments CHD Risk (test code = CHD Risk) 5.96 1 4.00-7.30 [facility] KapdyslMFVIEF7317-41-58 10:17:0079[facility] EkumczuIGZSNM0563-28-58 10:17:00 Test Item Value Reference Range Interpretation Comments VLDL (test code = VLDL) 35 1 [facility] COJHLADJY4939-90-24 10:17:005.0[facility] HermannCHEM MRJXM7502-21-83 10:17:0041[facility] HermannCHEM RSRUF2386-89-85 10:17:002.9 [facility] HermannCHEM KLIXL7420-08-43 10:17:97566Ilmipxkx HermannCHEM PANEL 2020-01-14 10:17:000.6[facility] HermannCHEM DNOKZ4855-96-86 10:17:008.2[facility] HermannCHEM XMQLM7934-42-51 10:17:0019[facility] HermannCHEM WESKW0231-80-96 10:17:00 Test Item Value Reference Range Interpretation Comments B/C Ratio (test code = B/C Ratio) 24 1 - [facility] HermannCHEM ZAILW6570-93-00 10:17:005.3[facility] HermannCHEM PANEL 2020-01-14 10:17:00 Test Item Value Reference Range Interpretation Comments A/G Ratio (test code = A/G Ratio) 0.5 1 0.7-1.6 [facility]annCHEM QTEHL3172-03-81 10:17:004.4[facility] HermannCHEM PANEL 2020-01-14 10:17:002.2[facility] JeirjgkLISCWRJCSW7519-84-82 10:17:000.1[facility] QtwzzieRIRKGFZGOD1122-01-72 10:17:0023.5[facility] MxwlcrsLMDJOV4048-95-74 10:17:18000Eezdbjyx XarmpruDEHOVO7375-28-33 10:17:91043Pbfhbalc HermannLIPIDS 2020-01-14 10:17:0023[facility] VlivrxgPOJMGE5352-67-20 10:17:00 Test Item Value Reference Range Interpretation Comments CHD Risk (test code = CHD Risk) 5.96 1 4.00-7.30 [facility] SofxdvkVAPIYA8063-29-88 10:17:0079[facility] XuscqnhGORUGJ1315-11-15 10:17:00 Test Item Value Reference Range Interpretation Comments VLDL (test code = VLDL) 35 1 [facility]annSPECIAL HQJTLIEIX6436-01-25 10:17:005.0[facility] WMTGCYFVGM7386-37-79 14:47:00Not Detected (01/12/20 9:47 AM)[facility] VAXGXZVRRT9398-66-11 14:47:00Not Detected (01/12/20 9:47 AM)[facility] VCITMPXKUB4420-20-99 06:31:00 Test Item Value Reference Range Interpretation Comments PTT (test code = PTT) 66.7 s 22.9-35.8 [facility]roeCbzbxctTCQGGHHCQI4395-39-55 06:31:00 Test Item Value Reference Range Interpretation Comments PTT (test code = PTT) 66.7 s 22.9-35.8 [facility]roePeferxvRRLYDNVESQ5232-99-16 23:26:00 Test Item Value Reference Range Interpretation Comments PTT (test code = PTT) 102.2 s 22.9-35.8 [facility]roeJdzwepsQNNBLKSZAY0239-79-33 23:26:00 Test Item Value Reference Range Interpretation Comments PTT (test code = PTT) 102.2 s 22.9-35.8 [facility]roeSlmxwylHNYEFSYAKC5433-11-43 15:23:00 Test Item Value Reference Range Interpretation Comments PTT (test code = PTT) 54.3 s 22.9-35.8 [facility] ConroeFiaonicENEJBBFAUF8573-91-17 15:23:00 Test Item Value Reference Range Interpretation Comments PTT (test code = PTT) 54.3 s 22.9-35.8 [facility]annCHEM HJKQD7769-67-57 09:15:71757Gjfvkzyi HermannCHEM PANEL 2020-01-11 09:15:0016[facility] HermannCHEM OYMFA4057-41-97 09:15:000.71[facility] HermannCHEM HRGEB6043-94-48 09:15:86699Tbytrntf HermannCHEM WVPTH0601-67-86 09:15:004.1[facility] HermannCHEM TVCRS4219-28-67 09:15:04279Kchoxqus HermannCHEM DXYNW1917-51-24 09:15:0022[facility] HermannCHEM VDJGS4969-21-08 09:15:008.7 [facility]annCHEM GSEBX1234-50-65 09:15:0014.1[facility] HermannCHEM PANEL 2020-01-11 09:15:04301Zttityfx HermannCHEM SCGVT4909-85-95 09:15:002.1[facility] HermannCHEM VOWKW6339-69-20 09:15:003.9[facility] JyctljpPVEIWTDCWY9591-71-03 09:15:0010.4[facility] RedmdwpYBOHUFUSRQ0060-45-23 09:15:003.11[facility] KCJJDBQMDV3377-28-21 09:15:009.8[facility] JdfkayfAFOTNQVLDV5056-56-96 09:15:00 28.2[facility] DjyhkrrGXRGBLEYYI7134-37-18 09:15:0090.7[facility] HermannHEMATOLOGY 2020-01-11 09:15:00 Test Item Value Reference Range Interpretation Comments MCH (test code = MCH) 31.5 pg 27.0-31.0 [facility] TetbczjGCILFQRSOZ5002-47-73 09:15:0034.7[facility] HermannHEMATOLOGY 2020-01-11 09:15:0014.2[facility] AfpnwhtUOHEZAJZJW7847-83-72 09:15:42211Wydixzwy GolrkabAXVQVOHYEN9953-64-63 09:15:007.5[facility] JaesdxkILYOSGQFMC5027-52-10 09:15:0056.9[facility] VnutoacIZPJIVVMOJ6185-72-06 09:15:0029.7[facility] [place] WEALHVXPXX2896-88-41 09:15:0011.1[facility] BizoyfeKPMLKZPOLR2141-83-65 09:15:00 1.3[facility] ZqzztyxGJMFCMVQWJ5052-24-14 09:15:001.0[facility]annHEMATOLOGY 2020-01-11 09:15:005.9[facility] LzahzcvSNNBSOTDLP1108-85-81 09:15:003.1[facility] KarnpawKVFPJOSIJE2712-70-76 09:15:001.2[facility] OpkupekIIXKZQDDXM7261-50-43 09:15:000.1[facility] ClkrbooZTJUDUKYPK3500-79-86 09:15:000.1[facility] HermannCHEM CSKJP2053-83-02 09:15:46919Eefynljg HermannCHEM SJJPC1411-12-18 09:15:0016 [facility]annCHE[facility] NCCWB4511-42-41 09:15:000.71[facility]annCHEM PANEL 2020-01-11 09:15:18120Fmdqsxoy HermannCHEM VBIFS8658-48-03 09:15:004.1[facility]annCHEM TBETX1663-81-50 09:15:44904Aeyswkmw HermannCHEM JBZYM0622-66-65 09:15:0022[facility]annCHEM BHWUE6765-61-45 09:15:008.7[facility] HermannCHEM KEHGH6015-48-87 09:15:0014.1[facility] HermannCHEM BXLRY7115-04-70 09:15:71530 [facility]annCHEM PHUHO5867-44-00 09:15:002.1[facility] HermannCHEM PANEL 2020-01-11 09:15:003.9[facility] WfocivxXUYOVKALPJ7648-14-81 09:15:0010.4[facility] FrhfmyxXFUMCKHRJH9155-90-98 09:15:003.11[facility] HbmfhgkEYSHNZIJJH3152-22-64 09:15:009.8[facility] AftukffZQPJXLSXHT7964-12-27 09:15:0028.2[facility] OBXWRJGHKQ7020-92-11 09:15:0090.7[facility] SptyltgLTKEHXAFOB4441-50-06 09:15:00 Test Item Value Reference Range Interpretation Comments MCH (test code = MCH) 31.5 pg 27.0-31.0 [facility] LlwsnjxQODSSPCFRY6797-47-80 09:15:0034.7[facility] HermannHEMATOLOGY 2020-01-11 09:15:0014.2[facility] OviumbeDWZPISDVEZ7682-39-49 09:15:19318Quomluuc QvpztsbPBBTRSVPTV1796-34-01 09:15:007.5[facility] RqrjhdzYOCXBIKTBO9302-84-34 09:15:0056.9[facility] JjdblhbNMRVZGJBVK6132-31-38 09:15:0029.7[facility] NAFWZMKYSV0361-46-88 09:15:0011.1[facility] NyrdqhuVSRBGQDLVG9311-98-12 09:15:00 1.3[facility] OxbygzmLZYITDSKXP4273-62-85 09:15:001.0[facility]annHEMATOLOGY 2020-01-11 09:15:005.9[facility] YlzazmbIDNGUDLYCL9682-87-91 09:15:003.1[facility] StdjxhxMFGJLSFQOR3296-52-67 09:15:001.2[facility] KfgabgdZRQCEBGTBU8126-68-47 09:15:000.1[facility] IeufrrtLULLHMREDB8838-39-36 09:15:000.1[facility] [place] JYNHRNBHUH2206-52-30 18:51:00 Test Item Value Reference Range Interpretation Comments PT (test code = PT) 14.4 s 12.0-14.7 [facility] OctpychHTIIQGQYPX2863-37-20 18:51:00 Test Item Value Reference Range Interpretation Comments INR (test code = INR) 1.11 1 0.85-1.17 [facility] CpiayzhBHFHTWVMDU4156-97-95 18:51:00 Test Item Value Reference Range Interpretation Comments PT (test code = PT) 14.4 s 12.0-14.7 [facility] UuulyblYSXESJTEDJ7828-13-74 18:51:00 Test Item Value Reference Range Interpretation Comments INR (test code = INR) 1.11 1 0.85-1.17 [facility]annCHEM RRZBM2093-65-24 10:55:93061Lnmyrlfd HermannCHEM PANEL 2020-01-10 10:55:0012[facility] HermannCHEM KCCDV3047-36-66 10:55:000.72[facility] HermannCHEM GOMTT5020-01-78 10:55:16996Andpvhge HermannCHEM XUYUT2467-27-90 10:55:003.8[facility] HermannCHEM LQQDK3163-00-88 10:55:54649Tkzmanex HermannCHEM SBDBY2330-32-79 10:55:0025[facility] HermannCHEM LSPTD7909-45-55 10:55:008.6 [facility]annCHEM VZPFZ1439-04-53 10:55:009.8[facility] HermannCHEM PANEL 2020-01-10 10:55:11561Ksfzzbqu IadzfekPSCHHUVYHZ9947-51-60 10:55:0060.2[facility] VoxxlfrVNRFXDGFFC7267-11-70 10:55:0025.7[facility] LnjnyekSNZQZGZNHJ4204-98-42 10:55:0011.9[facility] DjjaqhxVUQTSOMLCA8518-25-59 10:55:001.5[facility] [place] ZBJXRIRWXF5285-29-40 10:55:000.7[facility] BlsrsqnKFUSTDBAAW9072-76-65 10:55:005.1 [facility] FowcyqsLUEVTURJFJ9417-91-31 10:55:002.2[facility] HermannHEMATOLOGY 2020-01-10 10:55:001.0[facility] XcinaszFHLZMKRZVI1480-98-34 10:55:000.1[facility] PszqhawUTEPJLISZH4789-96-49 10:55:000.1[facility] MbknxtfHIZSBFWFKQ4945-58-56 10:55:008.5[facility] KahqdtdCXVHNHSATU4396-36-02 10:55:003.09[facility] GQQNFKYAAK9903-08-92 10:55:009.5[facility] VmejisvAPSRREFWTC5354-56-49 10:55:00 27.4[facility] ZfyjzddQJYKLMDPDG0797-79-75 10:55:0088.9[facility] 2020-[facility]10 10:55:00 Test Item Value Reference Range Interpretation Comments MCH (test code = MCH) 30.6 pg 27.0-31.0 [facility] UjmcjdsKEJTNLYSAX7797-22-37 10:55:0034.5[facility]annHEMATOLOGY 2020-01-10 10:55:0014.5[facility] WxlhtbdLOWPQKJVFX0073-11-58 10:55:10088Hbjckynu VyvjblsSKPOQAAAXX6071-69-99 10:55:007.6[facility] HxufkuiRZAZDWVDTM7188-70-30 10:55:00 Test Item Value Reference Range Interpretation Comments PT (test code = PT) 14.7 s 12.0-14.7 [facility] KrqypouIUEERNCEIF7488-50-77 10:55:00 Test Item Value Reference Range Interpretation Comments INR (test code = INR) 1.14 1 0.85-1.17 [facility] UTCIV0597-16-75 10:55:04731Ivfmfhes HermannCHEM PANEL 2020-01-10 10:55:0012[facility]annCHEM CMFSP1737-23-33 10:55:000.72[facility]annCHEM JSMZH5215-25-44 10:55:14929Eaefcigs HermannCHEM DRJVB1519-53-03 10:55:003.8[facility]annCHEM TGVPR6073-40-73 10:55:16018Dziodwzh HermannCHEM YQUGY3431-50-87 10:55:0025[facility]annCHEM ORWKL3337-58-10 10:55:008.6 [facility]annCHE[facility] JCRGV8828-01-39 10:55:009.8[facility]annCHEM PANEL 2020-01-10 10:55:81952Dcxiwbhl LsdjwywKWEHHXYVDG3412-95-69 10:55:0060.2[facility] DfeoauwKLPWTZRMYA7104-84-29 10:55:0025.7[facility] OdudubdRVTIJVWNDV0191-95-64 10:55:0011.9[facility] WebaqvoFJWZRBFRUX1821-48-45 10:55:001.5[facility] KIAWKISLFI1064-82-51 10:55:000.7[facility] QivycbqQKADIYSFLZ1595-45-65 10:55:005.1 [facility] BfowqajODJTYKELUL0486-11-28 10:55:002.2[facility]annHEMATOLOGY 2020-01-10 10:55:001.0[facility] GtagcedTQQOLSWVBS9960-76-28 10:55:000.1[facility] FlorwsuGHINTDIGIW7078-93-04 10:55:000.1[facility] DnvvmamMYRJLZASUN6767-61-46 10:55:008.5[facility] KekzwvaLNLEMTVOVC8125-23-66 10:55:003.09[facility] YIWFLSRJIN1026-89-14 10:55:009.5[facility] CowmnseUBVKXGYPFR2796-81-79 10:55:00 27.4[facility] VuiaxokFGNFGOABWH7813-48-24 10:55:0088.9[facility]annHEMATOLOGY 2020-01-10 10:55:00 Test Item Value Reference Range Interpretation Comments MCH (test code = MCH) 30.6 pg 27.0-31.0 [facility] NusxjyzSGKHPIACXR4294-58-84 10:55:0034.5[facility]annHEMATOLOGY 2020-01-10 10:55:0014.5[facility] RpwkbvrGFAHDXMDAM4700-50-61 10:55:64753Ilyrokxn AxorhltQLXIGIHUSU1085-95-70 10:55:007.6[facility] UubusokDKFARKVJTI8727-57-76 10:55:00 Test Item Value Reference Range Interpretation Comments PT (test code = PT) 14.7 s 12.0-14.7 [facility] PfdpmujZVEEKACCEW8116-25-74 10:55:00 Test Item Value Reference Range Interpretation Comments INR (test code = INR) 1.14 1 0.85-1.17 [facility] ZnislaxQNNADJUGZY0023-14-44 04:32:00 Test Item Value Reference Range Interpretation Comments PT (test code = PT) 14.7 s 12.0-14.7 [facility] VvixdndVMFGWZVWMN2212-96-04 04:32:00 Test Item Value Reference Range Interpretation Comments INR (test code = INR) 1.14 1 0.85-1.17 [facility] QpkwserMNVBIUSKJF4709-46-36 04:32:009.9[facility]annHEMATOLOGY 2020-01-10 04:32:003.25[facility] PuxfqmoGCXYQMCLPP5044-80-84 04:32:009.7[facility] ApvwhcnUTRFPDLDES3301-46-93 04:32:0028.6[facility] KwnbsfxOQBHVRDODK4357-40-91 04:32:0088.0[facility] EzjemztYMMMICMSJD5317-20-73 04:32:00 Test Item Value Reference Range Interpretation Comments MCH (test code = MCH) 30.0 pg 27.0-31.0 [facility] VhlqawqDNHOGXIXZQ7976-34-88 04:32:0034.0[facility]annHEMATOLOGY 2020-01-10 04:32:0014.3[facility] OkzalsjRYVBJDVDKC5741-84-49 04:32:33034Rsolzqbc SiaedjwHJAGUNZAMU5183-02-24 04:32:007.9[facility] SvxunrsEFRQFTQHHB9532-99-86 04:32:0059.0[facility] ZyepyleUCBKXDJQCL4272-95-91 04:32:0027.1[facility] JLKFLYUXSP5225-25-33 04:32:0012.2[facility] DyvewpvTQPVOPWVIO9967-49-19 04:32:00 1.0[facility] KsuxlagYLBMRBEKFB6469-05-75 04:32:000.7[facility]annHEMATOLOGY 2020-01-10 04:32:005.8[facility] AjpopdsEOTJYYOPBJ5454-18-70 04:32:002.7[facility] NbrgtsiPTUOBFGGTR9728-86-82 04:32:001.2[facility] ZtreydcYQPSUEHSBT5923-39-05 04:32:000.1[facility] WjjsfacFPCFPVSPSI2550-24-07 04:32:000.1[facility] NDETBEOAXV7543-32-95 04:32:00 Test Item Value Reference Range Interpretation Comments PT (test code = PT) 14.7 s 12.0-14.7 [facility] NoasjmdYMNYUTXXOG2703-75-81 04:32:00 Test Item Value Reference Range Interpretation Comments INR (test code = INR) 1.14 1 0.85-1.17 [facility] UlaxevvLHIVVEIINF9772-13-82 04:32:009.9[facility]annHEMATOLOGY 2020-01-10 04:32:003.25[facility] AkcfgmnHOEUTTHSGI6258-23-53 04:32:009.7[facility] WwoydddYQHJSLHFZG0041-98-76 04:32:0028.6[facility] VeucyeiETHPHEVMPP0878-98-24 04:32:0088.0[facility] RnoftjnSLRQLVNURC5561-37-62 04:32:00 Test Item Value Reference Range Interpretation Comments MCH (test code = MCH) 30.0 pg 27.0-31.0 [facility] GqtcvgqKBEYYXIQKR8640-54-30 04:32:0034.0[facility]annHEMATOLOGY 2020-01-10 04:32:0014.3[facility] GyeegsyLVWUPMZFFM5981-70-37 04:32:42425Kojrdzdt RaiizjcUPONVBJBUO0614-47-99 04:32:007.9[facility] McfienuJDXPIXNCCW3313-73-57 04:32:0059.0[facility] JzxgucnSCYAPWMWEP6662-74-01 04:32:0027.1[facility] MDNXFXAUJP6417-70-25 04:32:0012.2[facility] UliidnoDVDXIKKUCC9983-16-44 04:32:00 1.0[facility] CnjvfteIHHCKVWIXU9457-36-08 04:32:000.7[facility]annHEMATOLOGY 2020-01-10 04:32:005.8[facility] LzhqaryYYOJMYILHV8760-10-42 04:32:002.7[facility] HicatsbEUALXORZWB6361-55-75 04:32:001.2[facility] DgdnmhjHFGNXBKYTV7155-48-01 04:32:000.1[facility] XfqekotWEDDLJMCTJ3593-52-45 04:32:000.1[facility]annURINE HHWT6244-53-30 14:36:0020[facility]annURINE JTXA5461-23-57 14:36:57126 [facility] PKDG9262-74-42 14:36:0026.10[facility] CHEM 2020-01-09 14:36:0012[facility]annURINE CPET6094-42-07 14:36:0016.1[facility]annURINE ZXMB5407-12-63 14:36:0020[facility] ILQD0493-93-36 14:36:55622Egolcina HermannURINE APIU9983-34-18 14:36:0026.10[facility] URINE YQEN4429-54-36 14:36:0012[facility]annURINE ZQKR1747-79-74 14:36:0016.1 [facility]annCHEM JLSYK4530-13-07 10:43:80597Spkulheq HermannCHEM PANEL 2020-01-09 10:43:0011[facility]annCHEM HXIGC7948-40-07 10:43:000.67[facility]annCHEM VWOGF5114-90-95 10:43:35453Jegzpjwg HermannCHEM BNBWE5969-89-36 10:43:004.2[facility] HermannCHEM CITCI4207-48-25 10:43:59533Sdcgswlo HermannCHEM OXIII6771-21-77 10:43:0022[facility]annCHEM REYNF5652-36-72 10:43:008.6 [facility]annCHE[facility] FAGDY2779-43-61 10:43:0013.2[facility]annCHEM PANEL 2020-01-09 10:43:70624Knxwpsxx HermannCHEM TBBNG0684-72-32 10:43:62605Wktwqmwe HermannCHEM UEKSP3395-22-90 10:43:0011[facility]annCHEM ZEYZK8702-61-49 10:43:000.67[facility]annCHEM SCSUQ8425-19-86 10:43:76212Uvcpculv HermannCHEM WGJXY4947-45-37 10:43:004.2[facility]annCHEM TDTRE8135-76-99 10:43:05221 [facility]annCHEM JHMLH8472-04-53 10:43:0022[facility]annCHEM PANEL 2020-01-09 10:43:008.6[facility]annCHEM UOEOC2631-60-63 10:43:0013.2[facility]annCHEM CXEWM1045-73-56 10:43:54748Dlnjwqaz HermannCHEM JLTTN1840-67-18 08:52:003.7[facility]annCHEM LJXAC2870-32-45 08:52:002.2[facility]annCHEM ZVLCI7550-50-68 08:52:003.7[facility]annCHEM NCRNZ1138-08-44 08:52:002.2 [facility] HermannANEMIA XDASZ5767-00-50 09:03:44076Zkghjopy HermannCHEM PANEL 2020-01-07 09:03:002.2[facility]annCHEM AJLPW4765-21-55 09:03:003.5[facility]annCHEM PIAFG7814-82-42 09:03:87546Eyoipnhh QqcpfumWGWCIWPIZH8995-05-26 09:03:008.20[facility] RtredneSFODXWXQWS3568-18-24 09:03:76472.0[facility] ANEMIA MWJZH6727-55-83 09:03:18854Tzbkdiat HermannCHEM TXAHN9588-34-42 09:03:00 2.2[facility]annCHEM MBBSU5733-59-26 09:03:003.5[facility]annCHEM PANEL 2020-01-07 09:03:18387Sfeymtop QjeeutqMKTQTWYWFY3009-65-40 09:03:008.20[facility] MexqycpKDVBJPTQTW1914-01-88 09:03:41439.0[facility] OrbctvdIZXJFTTUQS2202-87-43 19:24:00Not Detected (01/05/20 2:24 PM)[facility] ZnjtaysQYKBYTXCLA4492-99-78 19:24:00Not Detected (01/05/20 2:24 PM)[facility] HxsbpiqBGJHLJQQZR5908-90-14 10:04:98420.0[facility] GxwwtqnRHKOIORAUA4626-49-06 10:04:0014.9[facility] UYRASUHHWJ8865-12-84 10:04:78594.0[facility] PxyiajzVWKJLBJWPN8012-12-17 10:04:00 14.9[facility] YhswexvPXUXGWJYNU2117-89-50 17:13:00Not Detected (01/04/20 12:13 PM) [facility] QevhabyCMTHYPWBDU9606-34-92 17:13:00Not Detected (01/04/20 12:13 PM) [facility]annCARDIAC UOHWKCX5493-12-08 09:48:10997Ebfepzyp HermannCHEM PANEL 2020-01-04 09:48:006.9[facility]annCHEM QAQNX3428-77-91 09:48:003.0[facility]annCHEM OQFOV3404-50-37 09:48:0085[facility]annCHEM FPWAN5726-35-10 09:48:0063[facility]annCHEM EWVWE5380-42-76 09:48:0090[facility]annCHEM DUKAG4725-30-77 09:48:001.6[facility]annCHEM TRMAP7168-15-63 09:48:00 Test Item Value Reference Range Interpretation Comments B/C Ratio (test code = B/C Ratio) 17 02-10 [facility]annCHEM ISWYQ8292-57-68 09:48:003.9[facility]annCHEM PANEL 2020-01-04 09:48:00 Test Item Value Reference Range Interpretation Comments A/G Ratio (test code = A/G Ratio) 0.8 1 0.7-1.6 [facility]annCARDIAC UODPBOK4873-51-09 09:48:45772Ojnzeatk HermannCHEM PANEL 2020-01-04 09:48:006.9[facility]annCHEM YFVYO1643-31-34 09:48:003.0[facility]annCHEM UGBLQ0298-44-75 09:48:0085[facility]annCHEM VTFEE8698-00-75 09:48:0063[facility]annCHEM BLODX9753-35-57 09:48:0090[facility]annCHEM FEXEP3096-35-97 09:48:001.6[facility]annCHEM GJDHE9675-07-94 09:48:00 Test Item Value Reference Range Interpretation Comments B/C Ratio (test code = B/C Ratio) 17 02-10 [facility]annCHEM FCCGB8035-10-94 09:48:003.9[facility]annCHEM PANEL 2020-01-04 09:48:00 Test Item Value Reference Range Interpretation Comments A/G Ratio (test code = A/G Ratio) 0.8 1 0.7-1.6 [facility]CHE[facility] PGBTW1708-22-63 06:26:006.3[facility]annCHEM PANEL 2020-01-02 06:26:002.7[facility]annCHEM ZZYEW1397-52-41 06:26:0097[facility]annCHEM WWYPG9126-07-62 06:26:0088[facility]annCHEM EGGFB5138-46-35 06:26:0097[facility]annCHEM BQUOW5932-42-79 06:26:002.0[facility]annCHEM BSKBL8900-32-23 06:26:00 Test Item Value Reference Range Interpretation Comments B/C Ratio (test code = B/C Ratio) 22 1 02-10 [facility]annCHE[facility] IXPNO5933-15-34 06:26:003.6[facility]annCHEM PANEL 2020-01-02 06:26:00 Test Item Value Reference Range Interpretation Comments A/G Ratio (test code = A/G Ratio) 0.8 1 0.7-1.6 [facility]annCHEM CKCIW7211-97-31 06:26:0016.5[facility]annHEMATOLOGY 2020-01-02 06:26:67055Evxgfwdi HzirdgsYIHHZLDBNJ2190-11-50 06:26:006.34[facility]annCHEM IMGIQ4306-34-56 06:26:006.3[facility]annCHEM DLPSG0278-38-12 06:26:002.7[facility]annCHEM ALLGA3094-55-65 06:26:0097[facility]annCHEM VBOBU4955-81-66 06:26:0088[facility]annCHEM BSOTB0448-04-01 06:26:0097 [facility]annCHEM MCOAP4005-54-78 06:26:002.0[facility]annCHEM PANEL 2020-01-02 06:26:00 Test Item Value Reference Range Interpretation Comments B/C Ratio (test code = B/C Ratio) 22 1 6-25 [facility]CHEM RGCBV4079-95-78 06:26:003.6[facility]annCHEM PANEL 2020-01-02 06:26:00 Test Item Value Reference Range Interpretation Comments A/G Ratio (test code = A/G Ratio) 0.8 1 0.7-1.6 [facility]annCHEM YYFHY9801-62-38 06:26:0016.5[facility]annHEMATOLOGY 2020-01-02 06:26:50288Grdbdzai YngppoeQOAGDVBJOL8198-95-75 06:26:006.34[facility]annCHEM ZQYDS7374-64-70 08:25:006.4[facility]annCHEM OTKYM8689-62-36 08:25:002.7[facility]annCHEM NRXCT5361-82-55 08:25:003.7[facility]annCHEM VGNLF2617-84-01 08:25:00 Test Item Value Reference Range Interpretation Comments A/G Ratio (test code = A/G Ratio) 0.7 1 0.7-1.6 [facility]annCHEM TGGYL7630-34-42 08:25:0090[facility]annCHEM PANEL 2020-01-01 08:25:0094[facility]annCHEM SCZYY9362-61-89 08:25:21747Qdeiyyoe HermannCHEM UYTYC7444-02-87 08:25:002.2[facility]annCHEM NGWQO1453-81-56 08:25:000.8[facility]annCHEM FIENR2955-08-73 08:25:001.4[facility] UBHROJWNFG1545-60-60 08:25:004.42[facility] CxqbdkeJMSQZCGJQX6918-86-40 08:25:00 175.0[facility]annCHEM NGDCT1398-20-61 08:25:006.4[facility]annCHEM PANEL 2020-01-01 08:25:002.7[facility]annCHEM FNWTK2617-64-85 08:25:003.7[facility]annCHEM XWFXD3341-02-06 08:25:00 Test Item Value Reference Range Interpretation Comments A/G Ratio (test code = A/G Ratio) 0.7 1 0.7-1.6 [facility]annCHE[facility] PNHNM1197-30-71 08:25:0090[facility]annCHEM PANEL 2020-01-01 08:25:0094[facility]annCHEM QNNFX8884-66-50 08:25:05870Chanzjhv HermannCHEM GJAME9661-39-24 08:25:002.2[facility]annCHEM DQSYC4508-00-74 08:25:000.8[facility]annCHEM SEPTA6078-42-35 08:25:001.4[facility] FPFECEVDIM9838-67-33 08:25:004.42[facility] RytmtliKSDRVULEZK9827-16-28 08:25:00 175.0[facility]annCHEM ABEIQ6712-63-37 10:01:000.5[facility]annCHEM PANEL 2019-12-31 10:01:000.8[facility]annCHEM NEWYE4501-14-43 10:01:000.18[facility]annCHEM ZOCUD3013-04-87 10:01:93833Ybjbxfvg EbivuafTRWMGIYESQ0535-42-75 10:01:0097[facility] HermannPARATHYROID LCJHLKM8349-73-41 10:01:001.11[facility] HermannPARATHYROID PBSLKPH5197-54-37 10:01:001.12[facility]annCHEM PANEL 2019-12-31 10:01:000.5[facility]annCHEM UBTCB3216-50-45 10:01:000.8[facility]annCHEM SHBUG9345-55-45 10:01:000.18[facility]annCHEM EVIIQ4618-92-80 10:01:30710Kyvlhwcj GyxbgagXTNVZNLSEW3373-51-68 10:01:0097[facility] PARATHYROID YOVZNDX1291-13-25 10:01:001.11[facility]annPARATHYROID PROFILE 2019-12-31 10:01:001.12[facility] HermannANEMIA KYPXF0268-69-72 16:05:07313 [facility]annCHEM HKTSK5833-15-70 16:05:000.18[facility]annCHEM PANEL 2019-12-30 16:05:06823Jlgbdikq FjpqmnfNRBFSPNGGX6468-19-23 16:05:0075[facility] JntldupWXIKZNDAEE9554-95-47 16:05:12649Ihiouqyj HermannANEMIA IRPWD3623-47-45 16:05:73804Vkmerrpr HermannCHEM TGUJC7835-95-58 16:05:000.18[facility]annCHEM MBLWP5751-55-38 16:05:76112Zhepioln OntyserOIFAAVGZZR8691-73-31 16:05:0075 [facility] KmnthvuBXQPIYLNFK5417-72-46 16:05:57644Pzjbbhwd HermannANEMIA STUDY 2019-12-30 05:55:53881Lljzaers HermannCHEM EVFMB4880-02-40 05:55:000.3[facility]annCHEM JSDOD8717-01-50 05:55:000.8[facility] BbvicklHLCKPEWNZX2563-53-02 05:55:000.00[facility] KghrfomRMMDCTFRSV7259-08-90 05:55:0078[facility] PARATHYROID QQEBDOG4196-05-72 05:55:000.99[facility] HermannPARATHYROID PROFILE 2019-12-30 05:55:000.97[facility] HermannANEMIA GIRGC3387-70-51 05:55:73710 [facility]annCHEM HTVRT6441-81-54 05:55:000.3[facility]annCHEM PANEL 2019-12-30 05:55:000.8[facility] XedebjzBTZCMDYMFB0642-08-26 05:55:000.00[facility] LuvkyuwYBVYEDRKYT3358-86-16 05:55:0078[facility] HermannPARATHYROID PROFILE 2019-12-30 05:55:000.99[facility] HermannPARATHYROID SXGPJKF6838-98-09 05:55:00 0.97[facility]annCHEM WLBIN6124-49-53 23:11:60324Appfkwpt HermannCHEM PANEL 2019-12-29 23:11:10223Rganovkg HermannBACTERIAL - BRXKQCCR6963-51-17 22:44:00 Urine *NA*(12/29/19 5:44 PM)[facility] HermannBACTERIAL - SXYFLISZ1970-97-54 22:44:00Negative (12/29/19 5:44 PM)[facility] HermannCARDIAC UMNRMTX1179-16-87 22:44:577954Icpbquwn HermannCHEM BXLIW1419-72-21 22:44:000.17[facility] BACTERIAL - OHDFVYUV6884-71-92 22:44:00Urine *NA*(12/29/19 5:44 PM)[facility]annBACTERIAL - RFIHJHUT2386-53-59 22:44:00Negative (12/29/19 5:44 PM)[facility]annCARDIAC TSRSROU5459-68-44 22:44:074126Glvmvfzr HermannCHEM PANEL 2019-12-29 22:44:000.17[facility]annBLOOD BANK YWNIKPT7476-90-83 05:48:00 Negative (12/29/19 12:48 AM)[facility]annBL[facility]OD BANK NQSZJDM2170-88-89 05:48:00 Negative (12/29/19 12:48 AM)[facility]annCHEM PNIWA3866-85-00 05:33:00 Test Item Value Reference Range Interpretation Comments B/C Ratio (test code = B/C Ratio) 02-10 [facility]annCHEM OEOBN7111-96-63 05:33:00 Test Item Value Reference Range Interpretation Comments B/C Ratio (test code = B/C Ratio) 21 02-10 [facility] SdpzqjyCFGWCGWHNA9051-59-53 01:42:000.11[facility] HermannHEMATOLOGY 2019-12-29 01:42:000.11[facility] HermannCHEM GZGHS7125-75-73 13:46:0093[facility] WroichqUGEVEDLTOT0586-11-25 13:46:004[facility] [place]okooVDCFXLQFMG1158-14-90 13:46:00<1.7[facility] HermannCHEM OOJHO6701-90-92 13:46:0093[facility] HDOVJCOFVC7610-13-18 13:46:004[facility] VryafhaZATBFCMCZR7867-77-12 13:46:00 <1.7[facility] HermannCHEM QFRKB1833-91-39 10:54:002.4[facility] HermannCHEM PGYXK8753-13-99 10:54:002.4[facility] HermannCHEM EQKCE8236-63-68 06:23:002.8 [facility]annCHEM OQTPJ9114-05-88 06:23:002.8[facility] HermannCHEM PANEL 2019-12-26 14:30:004.0[facility] HermannDRUG ZOYHDP4258-85-04 14:30:00Negative *NA*(12/26/19 9:30 AM)[facility]annDRUG OPPRMQ3293-38-49 14:30:00Negative *NA*(12/26/19 9:30 AM)[facility]annDRUG OPCHNZ5778-58-79 14:30:00Positive *ABN*(12/26/19 9:30 AM)[facility]annDR[facility] VIWSXL4999-19-59 14:30:00Negative *NA*(12/26/19 9:30 AM)[facility]annDR[facility] JSRBEO9188-40-87 14:30:00Negative *NA*(12/26/19 9:30 AM)[facility]annDR[facility] FNGTDH4071-48-90 14:30:00Negative *NA*(12/26/19 9:30 AM)[facility]annDR[facility] ECDDWT3858-09-74 14:30:00Negative *NA*(12/26/19 9:30 AM)[facility]annDR[facility] DOSXZI7710-09-73 14:30:00See Note (12/26/19 9:30 AM)[facility]annDR[facility] HPNMER2425-02-63 14:30:00Negative *NA*(12/26/19 9:30 AM)[facility]annDR[facility] XXIQCS5246-95-52 14:30:00Negative *NA*(12/26/19 9:30 AM)[facility] CudwnfrMFIMOLJZNV8680-76-09 14:30:00 Test Item Value Reference Range Interpretation Comments ACT (TEG) Rapid (test code = ACT (TEG) 113 s 86-118 Rapid) [facility] IbcegfnEFZDNKMVQF0765-89-18 14:30:00 Test Item Value Reference Range Interpretation Comments Split Point Rapid (test code = Split 0.5 min Point Rapid) [facility] UydntkxQIBGBFXQXF6444-31-32 14:30:00 Test Item Value Reference Range Interpretation Comments R-time Rapid (test code = R-time 0.7 min 0.4-0.7 Rapid) [facility] KgfdfugIBQFUPCRPH5486-62-70 14:30:00 Test Item Value Reference Range Interpretation Comments K-time Rapid (test code = K-time 1.7 min 0.6-2.3 Rapid) [facility] EcxcjpzZVTMIWGUKF5485-91-87 14:30:00 Test Item Value Reference Range Interpretation Comments Angle Rapid (test code = Angle 70 degrees 64-80 Rapid) [facility] DzmfsiaEFJODGTYTQ4103-85-91 14:30:00 Test Item Value Reference Range Interpretation Comments Max Amplitude Rapid (test code = Max 59 mm 52-71 Amplitude Rapid) [facility]EedtqvlQIHQRTNVDU2403-22-49 14:30:007.3[facility]HE[facility] 2019-12-26 14:30:000.0[facility] HermannPARATHYROID OSZDIHF7504-48-58 14:30:001.07 [facility]annPARATHYROID ENHVYKA4217-14-73 14:30:001.00[facility]annURINE AND AUERY8937-72-61 14:30:00Yellow *NA*(12/26/19 9:30 AM)[facility]annUR[facility] AND OPDUW1452-70-10 14:30:00Marked *ABN*(12/26/19 9:30 AM)[facility]annUR[facility] AND GDCSI0434-68-31 14:30:00 Test Item Value Reference Range Interpretation Comments UA Spec Grav (test code = UA Spec 1.041 1 Grav) [facility]annUR[facility] AND GPOKS5606-75-76 14:30:00 Test Item Value Reference Range Interpretation Comments UA pH (test code = UA pH) 5.0 1 5.0-8.0 [facility]UR[facility] AND KIEHK3948-65-29 14:30:00Negative *NA*(12/26/19 9:30 AM) [facility]UR[facility] AND DHFPK3514-56-94 14:30:00Large *ABN*(12/26/19 9:30 AM) [facility] [id number] 14:30:00<1.0[facility] [id number] 14:30:00Negative (12/26/19 9:30 AM)[facility] [id number] 14:30:00Negative (12/26/19 9:30 AM)[facility] STOOL 2019-12-26 14:30:0025[facility] [id number] 14:30:007[facility] [id number] 14:30:003[facility] ST[facility]OL 2019-12-26 14:30:001[facility]CHE[facility] [id number] 14:30:004.0[facility] [id number] 14:30:00Negative *NA*(12/26/19 9:30 AM)[facility] [id number] 14:30:00Negative *NA*(12/26/19 9:30 AM)[facility] [id number] 14:30:00Positive *ABN*(12/26/19 9:30 AM)[facility] [id number] 14:30:00Negative *NA*(12/26/19 9:30 AM)[facility] [id number] 14:30:00Negative *NA*(12/26/19 9:30 AM)[facility] [id number] 14:30:00Negative *NA*(12/26/19 9:30 AM)[facility] [id number] 14:30:00Negative *NA*(12/26/19 9:30 AM)[facility] [id number] 14:30:00See Note (12/26/19 9:30 AM)[facility] [id number] 14:30:00Negative *NA*(12/26/19 9:30 AM)[facility] [id number] 14:30:00Negative *NA*(12/26/19 9:30 AM)[facility] 14:30:00 Test Item Value Reference Range Interpretation Comments ACT (TEG) Rapid (test code = ACT (TEG) 113 s 86-118 Rapid) [facility]TuxdwktFULSDYTAQS2916-63-32 14:30:00 Test Item Value Reference Range Interpretation Comments Split Point Rapid (test code = Split 0.5 min Point Rapid) [facility] HospitalRabytibJXIJGELINV4932-98-33 14:30:00 Test Item Value Reference Range Interpretation Comments R-time Rapid (test code = R-time 0.7 min 0.4-0.7 Rapid) [facility] HospitalBcuvzcsDRLEKIQQQU2095-19-86 14:30:00 Test Item Value Reference Range Interpretation Comments K-time Rapid (test code = K-time 1.7 min 0.6-2.3 Rapid) [facility] HospitalDkbsnrkMMBTXPVKHV1807-40-46 14:30:00 Test Item Value Reference Range Interpretation Comments Angle Rapid (test code = Angle 70 degrees 64-80 Rapid) [facility] HospitalFzgpncbXCROAFBDAO3310-50-15 14:30:00 Test Item Value Reference Range Interpretation Comments Max Amplitude Rapid (test code = Max 59 mm 52-71 Amplitude Rapid) [facility]vjybqNOXQMUPVCH6732-54-98 14:30:007.3[facility] 2019-12-26 14:30:000.0[facility]annPARATHYROID [id number] 14:30:001.07 [facility]PARATHYRO[facility] [id number] 14:30:001.00[facility] [id number] 14:30:00Yellow *NA*(12/26/19 9:30 AM)[facility] [id number] 14:30:00Marked *ABN*(12/26/19 9:30 AM)[facility] [id number] 14:30:00 Test Item Value Reference Range Interpretation Comments UA Spec Grav (test code = UA Spec 1.041 1 Grav) [facility] [id number] 14:30:00 Test Item Value Reference Range Interpretation Comments UA pH (test code = UA pH) 5.0 1 5.0-8.0 [facility] [id number] 14:30:00Negative *NA*(12/26/19 9:30 AM) [facility] [id number] 14:30:00Large *ABN*(12/26/19 9:30 AM) [facility] [id number] 14:30:00<1.0[facility] [id number] 14:30:00Negative (12/26/19 9:30 AM)[facility] [id number] 14:30:00Negative (12/26/19 9:30 AM)[facility] STOOL 2019-12-26 14:30:0025[facility] [id number] 14:30:007[facility] [id number] 14:30:003[facility] STOOL 2019-12-26 14:30:001[facility] OxjldhpIYRRLCOSFA1139-19-26 10:09:41 Test Item Value Reference Range Interpretation Comments ACT (TEG) Rapid (test code = ACT (TEG) 89 s 86-118 Rapid) [facility] HospitalFoxvyauVUTYRYMIYX0919-23-16 10:09:41 Test Item Value Reference Range Interpretation Comments Split [place] Rapid (test code = Split 0.3 min Point Rapid) [facility] HospitalLapqwqqDHIQXOHAQE7066-99-40 10:09:41 Test Item Value Reference Range Interpretation Comments R-time Rapid (test code = R-time 0.4 min 0.4-0.7 Rapid) [facility] HospitalUpwmgdzCQVOFWVLOD9156-61-12 10:09:41 Test Item Value Reference Range Interpretation Comments K-time Rapid (test code = K-time 1.3 min 0.6-2.3 Rapid) [facility] HospitalDisisuzTFAIFSGGUA4135-17-56 10:09:41 Test Item Value Reference Range Interpretation Comments Angle Rapid (test code = Angle 75 degrees 64-80 Rapid) [facility]burgMylvkieCQSBVMNRPM8145-82-89 10:09:41 Test Item Value Reference Range Interpretation Comments Max Amplitude Rapid (test code = Max 68 mm 52-71 Amplitude Rapid) [facility] HospitalJjghxccFEKCGLVGOB0992-88-89 10:09:4110.7[facility] 2019-12-26 10:09:410.7[facility] JhhxxfaVEDNOEJEKP4851-39-34 10:09:57402Dhbmrbul SxjinrbOCCMOQCEGH3914-39-39 10:09:410.189[facility] ZhhzqbuYTUERKYPAB4791-53-19 10:09:41 Test Item Value Reference Range Interpretation Comments ACT (TEG) Rapid (test code = ACT (TEG) 89 s 86-118 Rapid) [facility] HospitalItvjkwcJBUJUHNPNZ5845-58-58 10:09:41 Test Item Value Reference Range Interpretation Comments Split [place] Rapid (test code = Split 0.3 min Point Rapid) [facility] [id number] 10:09:41 Test Item Value Reference Range Interpretation Comments R-time Rapid (test code = R-time 0.4 min 0.4-0.7 Rapid) [facility] [id number] 10:09:41 Test Item Value Reference Range Interpretation Comments K-time Rapid (test code = K-time 1.3 min 0.6-2.3 Rapid) [id number] 10:09:41 Test Item Value Reference Range Interpretation Comments Angle Rapid (test code = Angle 75 degrees 64-80 Rapid) [facility] [id number] 10:09:41 Test Item Value Reference Range Interpretation Comments Max Amplitude Rapid (test code = Max 68 mm 52-71 Amplitude Rapid) [facility] [id number] 10:09:4110.7[facility] 2019-12[facility]26 10:09:410.7[facility] [id number] 10:09:29508Jjeuyucj [id number] 10:09:410.189[facility] RESULTS 2019-12-26 10:00:00Negative (12/26/19 5:00 AM)[facility] RESULTS 2019-12-26 10:00:00Negative (12/26/19 5:00 AM)[facility]
--- NOTE | 2021-04-11 19:11 | RAD REPORT ---
EXAM DESCRIPTION: CT - Chest For Pe Angio - 04/11/2021 7:03 pm CLINICAL HISTORY: SOB COMPARISON: No comparisons FINDINGS: Chest Wall: No suspicious thyroid nodules or pathologic lymphadenopathy. Lungs: Mild patchy bilateral ground-glass opacities. Pleura: No significant effusions or pneumothorax. Mediastinum/roberta: No pathologic lymphadenopathy. Pulmonary arteries/Aorta: No filling defect identified. No aortic aneurysm. Heart: No significant pericardial effusion. Normal heart size. Upper abdomen: No acute abnormality. Bones: No acute abnormality. IMPRESSION: Negative for pulmonary embolism. Mild bilateral airspace disease concerning for multifoc al pneumonia, including Covid-19.
[2021-04-11 19:20] LABS: BUN Blood Urea Nitrogen 10 mg/dL (7-18); Bicarbonate 22 mmol/L (21-32); Glucose Level 110 mg/dL (74-106); Potassium 3.9 mmol/L (3.5-5.1); Sodium Level 134 mmol/L (136-145)
[2021-04-11] MEDS ORDERED: NA CHLORIDE 0.9% 1,000 ML ONE (21:35)
[2021-04-11] MEDS ORDERED: ONDANSETRON 4 MG/2 ML VIAL ONE (21:35)
[2021-04-11] MEDS ORDERED: BENZONATATE 100 MG CAP PO ONE (21:35)
[2021-04-11] MEDS ORDERED: ACETAMINOPHEN 500 MG TAB ONE (21:51)
[2021-04-11] MEDS ORDERED: NA CHLORIDE 0.9% 250 ML ONE (21:51)
[2021-04-11] MEDS ORDERED: CASIRIVIMAB/IMDEVIMAB 10 ML VIAL ONE (21:52)
[2021-04-11] MEDS ORDERED: NA CHLORIDE 0.9% 50 ML ONE (21:52)
[2021-04-11 23:40] LABS: Basophils % 0.4 % (0-1.3); Hematocrit 45.2 % (39.6-49.0); Lymphocytes % 17.2 % (15.3-44.8); MPV 9.5 fL (7.6-11.3); RBC Red Blood Cell Count 5.18 M/uL (4.33-5.43)
[2021-04-11 23:41] LABS: Protime INR 1.28
[2021-04-12 00:02] LABS: ALT/SGPT 54 U/L (12-78); AST/SGOT 44 U/L (15-37); Albumin 4.1 g/dL (3.4-5.0); Alkaline Phosphatase 63 U/L (45-117); Bilirubin Direct 0.1 mg/dL (0-0.2); Bilirubin Total 0.5 mg/dL (0.2-1.0); Ferritin 795.4 ng/mL (26-388); NT PRO-BNP 9 pg/mL (<125); Protein, Total 9.3 g/dL (6.4-8.2); Troponin (Emerg Dept Use Only) < 0.02 ng/mL (0.0-0.045)
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
[2021-04-12 02:33] VITALS: O2SAT 97
[2021-04-12 02:36] VITALS: BP 122/75; TEMP 99.4
--- NOTE | 2021-04-12 15:38 | EKG ---
Test Date: 2021-04-11 Test Time: 20:55:20 Behavioral Health Specialist: SAM MEASUREMENT RESULTS: Intervals: Rate: 106 NC: 160 QRSD: 82 QT: 322 QTc: 427 [place]: P: 43 NC: 160 QRS: 77 T: 26 INTERPRETIVE STATEMENTS: Sinus tachycardia Otherwise normal ECG No previous ECG available for comparison Electronically Signed On 04-12-21 15:36:57 CDT by Efren Triplett
== END 2021-04-12 02:27 | disposition home or self-care (01) ==
LOC: ER 17:21
DX: U07.1 COVID-19 (principal); J12.89 Other viral pneumonia; I10 Essential (primary) hypertension
CPT/HCPCS: 36415; 71275; 80048; 80076; 82565; 82728; 83735; 83880; 84484; 85025; 85379; 85610; 86140; 93005; 96361; 96365; 96375; 99285; J2405; J7030; J7050; Q9967